=== PATIENT | female | born 1940 | race Caucasian/White ===

== ENCOUNTER 2017-05-27 11:38 | Inpatient (IN) | payer MEDICARE, OTHER ==
[~2017-05-27] VITALS: Ht 152.4 cm; Wt 64.0 kg
[~2017-05-27 11:38] MED LIST: BUSP10TA PO; DEPA250T2 PO; ESTR.625 PO; HYDR-3288 PO; LEVA500T PO; LEVO75TA3 PO; LORA0.5T PO; PRED10 PO; REME15TA PO; SENN8.6T8 PO; SERO300T PO; VITA100018 PO; WALKER WHEELS/F1 MIS; XARE10TA PO
[2017-05-27 11:41] VITALS: BP 143/66; PULSE 82; RESP 16; TEMP 98.2; O2SAT 99
[2017-05-27 12:48] LABS: AUTOMATED NEUTROPHIL # 4.6 TH/MM3 (1.8-7.7); BASOPHIL % 0.2 % (0.0-2.0); EOSINOPHIL % 0.2 % (0.0-4.0); HEMATOCRIT 36.7 % (35.0-46.0); HEMOGLOBIN 12.5 GM/DL (11.6-15.3); LYMPHOCYTE # 1.1 TH/MM3 (1.0-4.8); MEAN CELL VOLUME 98.4 FL (80.0-100.0); MEAN CORPUSCULAR HEMOGLOBIN 33.6 PG (27.0-34.0); MEAN CORPUSCULAR HGB CONC 34.2 % (32.0-36.0); MEAN PLATELET VOLUME 8.4 FL (7.0-11.0); MONO % 9.2 % (0.0-8.0); MONOCYTE # 0.6 TH/MM3 (0-0.9); NEUT % 73.4 % (16.0-70.0); PLATELET COUNT 181 TH/MM3 (150-450); RED BLOOD COUNT 3.73 MIL/MM3 (4.00-5.30); RED CELL DISTRIBUTION WIDTH 13.4 % (11.6-17.2); WHITE BLOOD COUNT 6.3 TH/MM3 (4.0-11.0)
--- NOTE | 2017-05-27 13:06 | PD ---
HPI Chief Complaint: Psychiatric Symptoms Time Seen by Provider: 12:43 Travel History International Travel<30 days: No Contact w/Intl Traveler<30days: No Traveled to known affect area: No History of Present Illness HPI The patient is a 76-year-old female who presents to the emergency department for psychiatric evaluation. The patient resides at an assisted living facility, has recently been noted to have increasing anxiety and manic behaviors. The patient does have a history of bipolar affective disorder for which she takes medications including Seroquel and Depakote. The patient denies any auditory or visual hallucinations. The patient denies alcohol use, illicit drug use, suicidal ideation, or homicidal ideation. She does complain of intermittent chest pain which she achieve units to her anxiety, recently had an EKG and an outpatient CT pulmonary angiogram performed. She denies any current complaints. PFSH Past Medical History Arthritis: Yes Anxiety: Yes Cancer: Yes (according to daughter 2xs last episode was 3 1/2 yrs ago lung cancer) Cardiovascular Problems: No (denied by patient's daughter) COPD: Yes Diabetes: No (denied by patient's daughter) Diminished Hearing: No Endocrine: No Gastrointestinal Disorders: Yes GERD: Yes Genitourinary: No Hypertension: Yes Immune Disorder: No Implanted Vascular Access Dvce: No Kidney Stones: No Musculoskeletal: Yes Neurologic: No Psychiatric: Yes Reproductive: No Respiratory: Yes Radiation Therapy: Yes (FINISHED IN FEBRUARY 2012) Renal Failure: No Menopausal: Yes : 3 Para: 3 Past Surgical History Abdominal Surgery: No Cardiac Surgery: No Ear Surgery: No Endocrine Surgery: No Eye Surgery: No Genitourinary Surgery: Yes (LITHOTRIPSY) Gynecologic Surgery: Yes (HYSTERECTOMY, ERECTOSEAL) Hysterectomy: Yes Thoracic Surgery: No Other Surgery: Yes (RIGHT LUNG BIOPSY/HEMORROIDECTOMY/R AXILLARY BENIGN MASS REMOVED) Social History Alcohol Use: No Tobacco Use: No (quit) Substance Use: No Allergies-Medications (Allergen,Severity, Reaction): Coded Allergies: atropine (Unverified Allergy, Severe, RASH, 05/27/17) doxycycline (Unverified Allergy, Severe, 05/27/17) hyoscyamine (Unverified Allergy, Severe, RASH, 05/27/17) penicillin G (Unverified Allergy, Severe, RASH, 05/27/17) phenobarbital (Unverified Allergy, Severe, RASH, 05/27/17) scopolamine (Unverified Allergy, Severe, RASH, 05/27/17) Reported Meds & Prescriptions Reported Meds & Active Scripts Active Lorazepam 0.5 Mg Tab 0.5 Mg PO DAILY PRN Vitamin D3 (Cholecalciferol) 1,000 Unit Tab 1,000 Units PO DAILY 30 Days Prednisone 10 Mg Tab 30 Mg PO DAILY 7 Days PREDNISONE 30 MG PO DAILY X 3, THEN DECRASE TO 20 MG PO DAILY X 3, THEN DECREASE 10 MG PO DAILY X 3 DAYS, THEN STOPPED Levaquin (Levofloxacin) 500 Mg Tab 500 Mg PO Q24H 5 Days Walker with Front Wheels (Device) 1 Mis Mis 1 Ea .ROUTE DIRECTED Xarelto (Rivaroxaban) 10 Mg Tab 10 Mg PO DAILY [place] (Hydrocodone-Acetaminophen) 7.5-325 mg Tab 1 Tab PO Q4H PRN Reported Seroquel (Quetiapine Fumarate) 300 Mg Tab 300 Mg PO HS Senna S (Sennosides-Docusate Sodium) 8.6-50 Mg Tab 1 Tab PO DIRECTED Remeron (Mirtazapine) 15 Mg Tab 7.5 Mg PO HS Premarin (Estrogens Conjugated) 0.625 Mg Tab 0.625 Mg PO DAILY Levothyroxine (Levothyroxine Sodium) 75 Mcg Tab 75 Mcg PO DAILY Depakote DR (Divalproex Sodium) 250 Mg Tabdr 250 Mg PO BID Buspirone (Buspirone HCl) 10 Mg Tab 10 Mg PO TID Review of Systems Except as stated in HPI: all other systems reviewed are Neg HENT: No: Lightheadedness Cardiovascular: Positive: Chest Pain or Discomfort (intermittent chest pain she attributes to her anxiety, no chest pain today) Respiratory: No: Shortness of Breath Gastrointestinal: No: Nausea, Vomiting, Abdominal Pain Genitourinary: No: Dysuria Neurologic: No: Change in Mentation Psychiatric: Positive: Anxiety, Mood Disorder, No: Suicidal Ideations, Substance Abuse, Homicidal Ideation Physical Exam Narrative GENERAL: Awake, alert, pleasant 76-year-old female who appears her stated age and is in no acute respiratory distress. SKIN: Focused skin assessment warm/dry. HEAD: Atraumatic. Normocephalic. EYES: Pupils equal and round. 3 mm bilateral and reactive. ENT: No nasal bleeding or discharge. Mucous membranes pink and moist. NECK: Trachea midline. No JVD. CARDIOVASCULAR: Regular rate and rhythm. No murmur appreciated. RESPIRATORY: No accessory muscle use. Clear to auscultation. Breath sounds equal bilaterally. GASTROINTESTINAL: Abdomen soft, non-tender, nondistended. No rebound tenderness. MUSCULOSKELETAL: No obvious deformities. No clubbing. No cyanosis. No edema. NEUROLOGICAL: Awake and alert. No obvious cranial nerve deficits. Motor grossly within normal limits. Normal speech. Oriented to date of , month, and holiday, but not the current year or cake wringer. PSYCHIATRIC: Appropriate mood and affect; insight and judgment normal. Data Data Last Documented VS Vital Signs Date Time Temp Pulse Resp B/P (MAP) Pulse Ox O2 Delivery O2 Flow Rate FiO2 05/27/17 11:41 98.2 82 16 143/66 (91) 99 Orders Orders Complete Blood Count With Diff (05/27/17 12:02) Comprehensive Metabolic Panel (05/27/17 12:02) Thyroid Stimulating Hormone (05/27/17 12:02) Urinalysis - C+S If Indicated (05/27/17 12:02) Valproic Acid (Depakene) (05/27/17 12:02) Psych Screen (05/27/17 12:02) Drug Screen, Random Urine (05/27/17 12:02) Alcohol (Ethanol) (05/27/17 12:02) Ammonia (05/27/17 14:05) Labs Laboratory Tests Test 05/27/17 12:30 05/27/17 13:20 05/27/17 14:15 White Blood Count 6.3 TH/MM3 Red Blood Count 3.73 MIL/MM3 Hemoglobin 12.5 GM/DL Hematocrit 36.7 % Mean Corpuscular Volume 98.4 FL Mean Corpuscular Hemoglobin 33.6 PG Mean Corpuscular Hemoglobin Concent 34.2 % Red Cell Distribution Width 13.4 % Platelet Count 181 TH/MM3 Mean Platelet Volume 8.4 FL Neutrophils (%) (Auto) 73.4 % Lymphocytes (%) (Auto) 17.0 % Monocytes (%) (Auto) 9.2 % Eosinophils (%) (Auto) 0.2 % Basophils (%) (Auto) 0.2 % Neutrophils # (Auto) 4.6 TH/MM3 Lymphocytes # (Auto) 1.1 TH/MM3 Monocytes # (Auto) 0.6 TH/MM3 Eosinophils # (Auto) 0.0 TH/MM3 Basophils # (Auto) 0.0 TH/MM3 CBC Comment DIFF FINAL Differential Comment Blood Urea Nitrogen 14 MG/DL Creatinine 0.87 MG/DL Random Glucose 116 MG/DL Total Protein 7.2 GM/DL Albumin 3.3 GM/DL Calcium Level 9.0 MG/DL Alkaline Phosphatase 94 U/L Aspartate Amino Transf (AST/SGOT) 17 U/L Alanine Aminotransferase (ALT/SGPT) 11 U/L Total Bilirubin 0.3 MG/DL Sodium Level 139 MEQ/L Potassium Level 4.2 MEQ/L Chloride Level 105 MEQ/L Carbon Dioxide Level 25.9 MEQ/L Anion Gap 8 MEQ/L Estimat Glomerular Filtration Rate 63 ML/MIN Thyroid Stimulating Hormone 3rd Gen 2.970 uIU/ML Valproic Acid (Depakene) Level 118 MCG/ML Ethyl Alcohol Level LESS THAN 3 MG/DL Urine Color LIGHT-YELLOW Urine Turbidity CLEAR Urine pH 7.0 Urine Specific [place] 1.006 Urine Protein NEG mg/dL Urine Glucose (UA) NEG mg/dL Urine Ketones NEG mg/dL Urine Occult Blood NEG Urine Nitrite NEG Urine Bilirubin NEG Urine Urobilinogen LESS THAN 2.0 MG/DL Urine Leukocyte Esterase NEG Urine RBC 1 /hpf Urine WBC LESS THAN 1 /hpf Urine Squamous Epithelial Cells <1 /hpf Microscopic Urinalysis Comment CULT NOT INDICATED Urine Opiates Screen NEG Urine Barbiturates Screen NEG Urine Amphetamines Screen NEG Urine Benzodiazepines Screen NEG Urine Cocaine Screen NEG Urine Cannabinoids Screen NEG Ammonia 24 MCMOL/L MDM Medical Decision Making Medical Screen Exam Complete: Yes Emergency Medical Condition: Yes Medical Record Reviewed: Yes Interpretation(s) Laboratory Tests Test 05/27/17 12:30 05/27/17 13:20 05/27/17 14:15 White Blood Count 6.3 TH/MM3 Red Blood Count 3.73 MIL/MM3 Hemoglobin 12.5 GM/DL Hematocrit 36.7 % Mean Corpuscular Volume 98.4 FL Mean Corpuscular Hemoglobin 33.6 PG Mean Corpuscular Hemoglobin Concent 34.2 % Red Cell Distribution Width 13.4 % Platelet Count 181 TH/MM3 Mean Platelet Volume 8.4 FL Neutrophils (%) (Auto) 73.4 % Lymphocytes (%) (Auto) 17.0 % Monocytes (%) (Auto) 9.2 % Eosinophils (%) (Auto) 0.2 % Basophils (%) (Auto) 0.2 % Neutrophils # (Auto) 4.6 TH/MM3 Lymphocytes # (Auto) 1.1 TH/MM3 Monocytes # (Auto) 0.6 TH/MM3 Eosinophils # (Auto) 0.0 TH/MM3 Basophils # (Auto) 0.0 TH/MM3 CBC Comment DIFF FINAL Differential Comment Blood Urea Nitrogen 14 MG/DL Creatinine 0.87 MG/DL Random Glucose 116 MG/DL Total Protein 7.2 GM/DL Albumin 3.3 GM/DL Calcium Level 9.0 MG/DL Alkaline Phosphatase 94 U/L Aspartate Amino Transf (AST/SGOT) 17 U/L Alanine Aminotransferase (ALT/SGPT) 11 U/L Total Bilirubin 0.3 MG/DL Sodium Level 139 MEQ/L Potassium Level 4.2 MEQ/L Chloride Level 105 MEQ/L Carbon Dioxide Level 25.9 MEQ/L Anion Gap 8 MEQ/L Estimat Glomerular Filtration Rate 63 ML/MIN Thyroid Stimulating Hormone 3rd Gen 2.970 uIU/ML Valproic Acid (Depakene) Level 118 MCG/ML Ethyl Alcohol Level LESS THAN 3 MG/DL Urine Color LIGHT-YELLOW Urine Turbidity CLEAR Urine pH 7.0 Urine Specific [place] 1.006 Urine Protein NEG mg/dL Urine Glucose (UA) NEG mg/dL Urine Ketones NEG mg/dL Urine Occult Blood NEG Urine Nitrite NEG Urine Bilirubin NEG Urine Urobilinogen LESS THAN 2.0 MG/DL Urine Leukocyte Esterase NEG Urine RBC 1 /hpf Urine WBC LESS THAN 1 /hpf Urine Squamous Epithelial Cells <1 /hpf Microscopic Urinalysis Comment CULT NOT INDICATED Urine Opiates Screen NEG Urine Barbiturates Screen NEG Urine Amphetamines Screen NEG Urine Benzodiazepines Screen NEG Urine Cocaine Screen NEG Urine Cannabinoids Screen NEG Ammonia 24 MCMOL/L Differential Diagnosis Differential diagnosis includes bipolar affective disorder, mood disorder, subtherapeutic Depakote level, supratherapeutic Depakote level, UTI, delirium. Narrative Course Labs are drawn and sent. Depakote level and TSH were sent to lab. Psychiatric evaluation was ordered. Depakote level is supratherapeutic at 118, they will need to hold the Depakote level. Therefore, ammonia level was sent to lab. Ammonia level was unremarkable. Patient is medically clear to be evaluated by psychiatry, I recommended they hold the Depakote level Diagnosis Primary Impression: Bipolar disorder, mixed Additional Impression: Valproic acid toxicity Qualified Codes: T42.6X1A - Poisoning by other antiepileptic and sedative- hypnotic drugs, accidental (unintentional), initial encounter Condition: Stable Aaron Singh MD May 27, 2017 13:06
[2017-05-27 13:18] LABS: ALBUMIN 3.3 GM/DL (3.4-5.0); AST (GOT) 17 U/L (15-37); BICARBONATE 25.9 MEQ/L (21.0-32.0); BLOOD UREA NITROGEN 14 MG/DL (7-18); CHLORIDE 105 MEQ/L (98-107); CREATININE 0.87 MG/DL (0.50-1.00); GLOMERULAR FILTRATION RATE 63 ML/MIN (>89); GLUCOSE,RANDOM 116 MG/DL (74-106); SODIUM (NA) 139 MEQ/L (136-145)
[2017-05-27 13:28] LABS: ALKALINE PHOSPHATASE 94 U/L (45-117); ALT (GPT) 11 U/L (10-53); TOTAL BILIRUBIN ADULT 0.3 MG/DL (0.2-1.0); TOTAL PROTEIN 7.2 GM/DL (6.4-8.2)
[2017-05-27 16:30] LABS: BILIRUBIN, URINE NEG (NEG); BLOOD, URINE NEG (NEG); GLUCOSE,URINE NEG (NEG); KETONE, URINE NEG (NEG); NITRITE,URINE NEG (NEG); SQUAMOUS EPITHELIAL CELL URINE <1 /hpf (0-5); URINE COLOR LIGHT-YELLOW (YELLW/STRAW); URINE LEUKOCYTE ESTERASE NEG (NEG)
[2017-05-27] MEDS ORDERED: LEVO50TA4 PO (18:14)
[2017-05-27] MEDS ORDERED: QUET1TAB9 PO (18:14)
[2017-05-27] MEDS ORDERED: LISI-519 PO (18:14)
[2017-05-27] MEDS ORDERED: BUSP15TA PO (18:14)
[2017-05-27] MEDS ORDERED: LORA0.5T PO (18:14)
[2017-05-27] MEDS ORDERED: QUET5TAB PO (18:14)
[2017-05-27] MEDS ORDERED: LORazepam 1 MG TAB PO ONE (18:15)
[2017-05-27 19:55] VITALS: BP 145/82; PULSE 78; RESP 20; O2SAT 97
[2017-05-27] MEDS ORDERED: diphenhydrAMINE HCL 50 MG CAP PO PRN (22:45)
[2017-05-27] MEDS ORDERED: diphenhydrAMINE HCL 50 MG/ML VIAL IM PRN (23:00)
[2017-05-27] MEDS ORDERED: hydrOXYzine HCL 50 MG TAB PO PRN (23:00)
[2017-05-27] MEDS ORDERED: ALUMINUM/MAGNESIUM/SIMETH 30 ML CUP PO PRN (23:00)
[2017-05-27] MEDS ORDERED: diphenhydrAMINE HCL 50 MG/ML VIAL - HS PRN IM (23:00)
[2017-05-27] MEDS ORDERED: LORazepam 2 MG/ML VIAL - age > 65 yrs IM PRN (23:00)
[2017-05-27] MEDS ORDERED: ACETAMINOPHEN 325 MG TAB PO PRN (23:00)
[2017-05-27] MEDS ORDERED: LORazepam 0.5 MG TAB age > 65 yrs PO PRN (23:00)
[2017-05-27] MEDS ORDERED: traZODone HCL 50 MG TAB PO PRN (23:00)
[2017-05-27 23:30] VITALS: BP 164/89; PULSE 96; RESP 17; TEMP 98; O2SAT 98
[2017-05-28] MEDS: diphenhydrAMINE HCL 50 MG CAP - HS PRN PO
[2017-05-28] MEDS: LEVOTHYROXINE SODIUM 50 MCG TAB PO SCH (05:37)
[2017-05-28 05:41] VITALS: BP 148/80; PULSE 73; RESP 18; TEMP 97.3; O2SAT 94
[2017-05-28] MEDS: LISINOPRIL 5 MG TAB PO SCH (08:57)
[2017-05-28] MEDS ORDERED: NICOTINE 21 MG/24 HR PATCH T-DERMAL SCH (09:00)
--- NOTE | 2017-05-28 12:53 | HHI.HP ---
Provisional Diagnosis Admission Date May 27, 2017 at 22:09 [place] I. Bipolar disorder mixed F 31.60 Certification of Person's Competence To Provide Express and Informed Consent I have personally examined Eliane Frost , a person being served at [facility] on, May 28, 2017 12:37. Express and informed consent means consent voluntarily given in writing, by a competent person, after sufficient explanation and disclosure of the subject matter involved to enable the person to make a knowing and willful decision without any element of force, fraud, deceit, duress, or other form of constraint or coercion. This person is 18 years of age or older, is not now known to be incompetent to consent to treatment with a guardian advocate, and does not have a health care surrogate or proxy currently making medical treatment decisions. I have found this person to be one of the following: [xxxx] Competent to provide express and informed consent, as defined above, for voluntary admission to this facility and is competent to provide express and informed consent for treatment. He/she has the consistent capacity to make well reasoned, willful, and knowing decisions concerning his or her medical or mental health treatment. The person fully and consistently understands the purpose of the admission for examination/placement and is fully capable of personally exercising all rights [place] Incompetent to provide express and informed consent to voluntary admission, and this is incompetent to provide express and informed consent to treatment. The person must be transferred to involuntary status and a petition for a guardian advocate filed with the Circuit Court. [] Refusing to provide express and informed consent to voluntary admission but is competent to provide express and informed consent for treatment. The person must be discharged or transferred to involuntary status. Form shall be completed within 24 hours of a person's arrival at the receiving facility and filed in the clinical record of each person: 1. Admitted on a voluntary basis 2. Permitted to provide express and informed consent to his/her own treatment 3. Allowed to transfer from involuntary to voluntary status 4. Prior to permitting a person to consent to his or her own treatment after having been previously found incompetent to consent to treatment. History of Present Illness Capacity: Has Capacity HPI Patient is a 76-year-old white female comes here voluntarily from her small long term, [place] home, patient exhibited some out of control irritable manic labile behaviors. Making vague suicidal statements. Patient is a long history of bipolar disorder. Effect upon review of the EMR patient is hospitalized briefly under my service in 2013 for similar episode. Patient seen screened in our ED Depakote blood level returned as 118. In toxicology negative alcohol level negative. At the present time patient sitting quietly in her room medical student Jose present throughout session. Patient is alert oriented white female who appears stated age she is calm and cooperative with us. She states she is lived in her long term for number of years is actually happy with her. She states she tries to be compliant with medication. She does complain primarily of dry mouth it appears this occurs throughout the day but it is more significant towards late evening and into the morning hours. Depression is seeing her dentist no help. She has tried frequent use of about beverages. She has tried hard candy. All with no significant side effects. Patient does denies suicidality homicidality voices or visions. It appears she is getting his psychotropic medications for her family practice doctor. She does denies suicidality homicidality voices or visions. Patient lives in the long term but has close relationship with her daughter who lives locally. At this time patient meets criteria for further assessment voluntarily an inpatient psychiatric hospitalization. Will recheck Depakote blood level in a.m. we will increase her scheduled Seroquel to 50 mg a.m. 50 mg at bedtime. We 'll continue the Remeron at 7.5 mg daily we will discontinue the trazodone. will have hospitalist consult hopefully this will be a short stay with us, returning to her long term with follow-up through that facility patient also states that she has had 4 children 3 or 4 in the living daughter who is local, that she is also buried 3 husbands Review of Systems Constitutional: DENIES: Diaphoretic episodes, Fatigue, Fever, Weight gain, Weight loss, Chills, Dizziness, Change in appetite, Night Sweats Endocrine: DENIES: Abnorml menstrual pattern, Heat/cold intolerance, Polydipsia , Polyuria, Polyphagia Eyes: DENIES: Blurred vision, Diplopia, Eye inflammation, Eye pain, Vision loss , Photosensitivity, Double Vision Respiratory: DENIES: Apneas, Cough, Snoring, Wheezing, Hemoptysis, Sputum production, Shortness of breath Cardiovascular: DENIES: Chest pain, Palpitations, Syncope, Dyspnea on Exertion , PND, Lower Extremity Edema, Orthopnea, Claudication Gastrointestinal: DENIES: Abdominal pain, Black stools, Bloody stools, Constipation, Diarrhea, Nausea, Vomiting, Difficulty Swallowing, Anorexia Genitourinary: DENIES: Abnormal vaginal bleeding, Dysmenorrhea, Dyspareunia, Sexual dysfunction, Urinary frequency, Urinary incontinence, Urgency, Hematuria , Dysuria, Nocturia, Vaginal discharge Musculoskeletal: DENIES: Joint pain, Muscle aches, Stiffness, Joint Swelling, Back pain, Neck pain Hematologic/lymphatic: DENIES: Bruising, Lymphadenopathy Immunologic/allergic: DENIES: Eczema, Urticaria Neurologic: DENIES: Abnormal gait, Headache, Localized weakness, Paresthesias, Seizures, Speech Problems, Tremor, Poor Balance Psychiatric: COMPLAINS OF: Depression, Agitation (mild) Past Psych History Psychological trauma history Denies Violence risk - others (6 mos) Low Violence risk - self (6 mos) Low patient does denies suicidality homicidality voices or visions Substance Abuse History Drugs/Alcohol past 12 months Denies Past Family Social History Coded Allergies: atropine (Unverified Allergy, Severe, RASH, 05/27/17) doxycycline (Unverified Allergy, Severe, 05/27/17) hyoscyamine (Unverified Allergy, Severe, RASH, 05/27/17) penicillin G (Unverified Allergy, Severe, RASH, 05/27/17) phenobarbital (Unverified Allergy, Severe, RASH, 05/27/17) scopolamine (Unverified Allergy, Severe, RASH, 05/27/17) Reported Medications Quetiapine (Quetiapine) 50 Mg Tab, 50 MG PO HS, #30 TAB 0 Refills 05/27/17 Lisinopril (Lisinopril) 5 Mg Tab, 5 MG PO DAILY for Blood Pressure Management, # 30 TAB 0 Refills 05/27/17 Quetiapine (Quetiapine) 200 Mg Tab, 200 MG PO DAILY, #30 TAB 0 Refills 05/27/17 Levothyroxine (Levothyroxine) 50 Mcg Tab, 50 MCG PO DAILY for Thyroid, #30 TAB 0 Refills 05/27/17 Sennosides-Docusate Sodium (Senna S) 8.6-50 Mg Tab, 1 TAB PO DIRECTED 02/12/16 Mirtazapine (Remeron) 15 Mg Tab, 7.5 MG PO HS for Depression Control, #15 TAB 0 Refills 02/12/[address] (Depakote DR) 250 Mg Tabdr, 500 MG PO BID for Control Seizures, # 60 TAB 0 Refills 02/12/16 Discontinued Reported Medications Lorazepam (Lorazepam) 0.5 Mg Tab, 0.5 MG PO BID, TAB 0 Refills 05/27/17 Buspirone (Buspirone) 15 Mg Tab, 15 MG PO TID for Anxiety, TAB 0 Refills 05/27/17 Quetiapine (Seroquel) 300 Mg Tab, 300 MG PO HS, #30 TAB 0 Refills 02/12/16 Estrogens, Conjugated (Premarin) 0.625 Mg Tab, 0.625 MG PO DAILY for Estrogen Supplements, #30 TAB 0 Refills 02/12/16 Levothyroxine (Levothyroxine) 75 Mcg Tab, 75 MCG PO DAILY for Thyroid, #30 TAB 0 Refills 02/12/16 Buspirone (Buspirone) 10 Mg Tab, 10 MG PO TID for Anxiety, TAB 0 Refills 02/12/16 Discontinued Scripts Lorazepam (Lorazepam) 0.5 Mg Tab, 0.5 MG PO DAILY Y for ANXIETY, #10 TAB 0 Refills Prov:Contreras Castañeda MD 02/19/16 Cholecalciferol (Vitamin D3) 1,000 Unit Tab, 1000 UNITS PO DAILY for ELECTROLYTE IMBALANCE for 30 Days, TAB 0 Refills Prov:Bree Schafer 02/19/16 Prednisone (Prednisone) 10 Mg Tab, 30 MG PO DAILY for Broncospasm for 7 Days, TAB 0 Refills PREDNISONE 30 MG PO DAILY X 3, THEN DECRASE TO 20 MG PO DAILY X 3, THEN DECREASE 10 MG PO DAILY X 3 DAYS, THEN STOPPED Prov:Bree Schafer 02/19/16 Levofloxacin (Levaquin) 500 Mg Tab, 500 MG PO Q24H for Infection for 5 Days, TAB 0 Refills Prov:Bree Schafer 02/19/16 Walker with Front Wheels (Walker with Front Wheels) 1 Mis Mis, 1 EA .ROUTE DIRECTED, #1 EA 0 Refills Prov:LUANN MEJIA PA-C 02/13/16 Rivaroxaban (Xarelto) 10 Mg Tab, 10 MG PO DAILY for Blood Clot Prevention, #14 TAB 0 Refills Prov:LUANN MEJIA PA-C 02/13/16 Hydrocodone-Acetaminophen ([place]) 7.5-325 mg Tab, 1 TAB PO Q4H Y for PAIN, #60 TAB 0 Refills Prov:LUANN MEJIA PA-C 02/13/16 Current Medications Medications (Trade) Dose Ordered Sig/Tammy Route Start Time Stop Time Status Last Admin (Atarax) 50 mg Q6H PRN PO 05/27/17 23:00 (Benadryl) 50 mg HS PRN PO 05/27/17 23:00 05/28/17 00:00 (Desyrel) 50 mg HS PRN PO 05/27/17 23:00 (Tylenol) 650 mg Q4H PRN PO 05/27/17 23:00 (Milk Of Magnesia Liq) 30 ml DAILY PRN PO 05/27/17 23:00 (Mag-Al Plus Susp Liq) 30 ml Q6H PRN PO 05/27/17 23:00 (Synthroid) 50 mcg DAILY@0600 PO 05/28/17 06:00 05/28/17 05:37 (Prinivil) 5 mg DAILY PO 05/28/17 09:00 05/28/17 08:57 (SEROquel) 50 mg HS PO 05/28/17 21:00 (Flu (Quadrivalent) Vaccine Inj) 0.5 ml ONCE ONCE IM 05/29/17 10:00 05/29/17 10:01 Family Psych History Patient denies Social History Patient living in a long term has one surviving daughter who is local and supportive Patient's Strengths (min. 2) Patient verbal cooperative able axis health care Physical Exam Patient medically cleared ED at the present time patient sitting quietly on her bedside she is in no acute distress, she is in no respiratory distress, no complaints of abdominal pain. Patient moving all 4 extremities with a somewhat of a shuffle. She does use a walker. Vital Signs Vital Signs Date Time Temp Pulse Resp B/P (MAP) Pulse Ox O2 Delivery O2 Flow Rate FiO2 05/28/17 05:41 97.3 73 18 148/80 (102) 94 Lab Results Test 05/27/17 13:20 2/14/18 14:15 Urine Color LIGHT-YELLOW Urine Turbidity CLEAR Urine pH 7.0 Urine Specific [place] 1.006 Urine Protein NEG mg/dL Urine Glucose (UA) NEG mg/dL Urine Ketones NEG mg/dL Urine Occult Blood NEG Urine Nitrite NEG Urine Bilirubin NEG Urine Urobilinogen LESS THAN 2.0 MG/DL Urine Leukocyte Esterase NEG Urine RBC 1 /hpf Urine WBC LESS THAN 1 /hpf Urine Squamous Epithelial Cells <1 /hpf Microscopic Urinalysis Comment CULT NOT INDICATED Urine Opiates Screen NEG Urine Barbiturates Screen NEG Urine Amphetamines Screen NEG Urine Benzodiazepines Screen NEG Urine Cocaine Screen NEG Urine Cannabinoids Screen NEG Ammonia 24 MCMOL/L Mental Status Examination Appearance: Appropriate Consciousness: Alert Orientation: x4 Motor Activity: Other (patient uses walker will get PT consult) Speech: Unremarkable Language: Adequate Fund of Knowledge: Adequate Attention and Concentration: Adequate Memory: Unremarkable Mood: Sad (mildly dysphoric) Affect: Other (slight decreased range and intensity) Thought Process & Associations: Intact Thought Content: Appropriate Hallucination Type: None Delusion Type: None Suicidal Ideation: No (denies) Suicidal Plan: No (denies) Suicidal Intention: No (denies) Homicidal Ideation: No Homicidal Plan: No Homicidal Intention: No Insight: Fair Judgment: Adequate Assessment & Plan Problem List: (1) Bipolar disorder, mixed ICD Codes: F31.60 - Bipolar disorder, current episode mixed, unspecified Status: Acute Assessment & Plan Estimated LOS: 7 days patient remains somewhat mixed manic, though I do not see signs of psychosis at this time. We do need to monitor and adjust patient's Depakote level and dosage Discharge Planning Probable return to long term Request HC Surrog/Guard Advoc?: Akhil Daniel MD May 28, 2017 12:53
[2017-05-28] MEDS ORDERED: PILL SPLITTER OTHER PRN (13:00)
[2017-05-28 14:59] LABS: BICARBONATE 28.8 MEQ/L (21.0-32.0); BLOOD UREA NITROGEN 23 MG/DL (7-18); CHLORIDE 103 MEQ/L (98-107); CHOLESTEROL 195 MG/DL (120-200); CHOLESTEROL/ HDL RATIO 2.12 RATIO; CREATININE 1.28 MG/DL (0.50-1.00); GLOMERULAR FILTRATION RATE 41 ML/MIN (>89); GLUCOSE,RANDOM 92 MG/DL (74-106); HDL CHOLESTEROL 91.6 MG/DL (40.0-60.0); LDL CHOLESTEROL 90 MG/DL (0-99); SODIUM (NA) 139 MEQ/L (136-145); TRIGLYCERIDES 68 MG/DL (42-150)
[2017-05-28] MEDS ORDERED: cloNIDine HCL 0.1 MG TAB PO STA (15:47)
--- NOTE | 2017-05-28 16:36 | PD.CONS ---
[facility] Consult Requested By Psychiatry team, Dr. Sethi Reason for Consult Assist with medical management Primary Care Physician Aaron Keen MD Diagnoses: History of Present Illness Patient is a 76-year-old female with primary medical history of arthritis, anxiety, COPD, GERD who came into the hospital from assisted living facility for psychiatric evaluation. Review of records, patient was noted to have increasing anxiety and manic behaviors. She is now admitted to inpatient psychiatry unit for further evaluation. Consulted for medical management. Patient seen and examined today. States she is doing well. Patient unable to verify her own medical history. Patient does not remember any of the events that had happened brought her to the hospital. She denies that she has high blood pressure or COPD, states she has lung cancer where and she had lung biopsy. States she gets short of breath with ambulation because of too much effort especially with her right hip that she had surgery on in the past. Denies pain and discomfort. Denies chest pain, palpitations, headaches, dizziness. Denies fevers, chills, n/v/d. Denies dysuria. Review of Systems ROS Limitations: Poor Historian Past Family Social History Allergies: Coded Allergies: atropine (Unverified Allergy, Severe, RASH, 05/27/17) doxycycline (Unverified Allergy, Severe, 05/27/17) hyoscyamine (Unverified Allergy, Severe, RASH, 05/27/17) penicillin G (Unverified Allergy, Severe, RASH, 05/27/17) phenobarbital (Unverified Allergy, Severe, RASH, 05/27/17) scopolamine (Unverified Allergy, Severe, RASH, 05/27/17) Past Medical History Review of records Bipolar disorder Arthritis HTN COPD Lung cancer Gastritis Osteoporosis Past Surgical History Patient states Hysterectomy Lung biopsy Right hip surgery, IM nailing Reported Medications Reported Meds & Active Scripts Active Reported Quetiapine (Quetiapine Fumarate) 50 Mg Tab 50 Mg PO HS Lisinopril 5 Mg Tab 5 Mg PO DAILY Quetiapine (Quetiapine Fumarate) 200 Mg Tab 200 Mg PO DAILY Levothyroxine (Levothyroxine Sodium) 50 Mcg Tab 50 Mcg PO DAILY Senna S (Sennosides-Docusate Sodium) 8.6-50 Mg Tab 1 Tab PO DIRECTED Remeron (Mirtazapine) 15 Mg Tab 7.5 Mg PO HS Depakote DR (Divalproex Sodium) 250 Mg Tabdr 500 Mg PO BID Active Ordered Medications Current Medications Medications (Trade) Dose Ordered Sig/Tammy Route Start Time Stop Time Status Last Admin (Atarax) 50 mg Q6H PRN PO 05/27/17 23:00 (Benadryl) 50 mg HS PRN PO 05/27/17 23:00 05/28/17 00:00 (Tylenol) 650 mg Q4H PRN PO 05/27/17 23:00 (Milk Of Magnesia Liq) 30 ml DAILY PRN PO 05/27/17 23:00 (Mag-Al Plus Susp Liq) 30 ml Q6H PRN PO 05/27/17 23:00 (Synthroid) 50 mcg DAILY@0600 PO 05/28/17 06:00 05/28/17 05:37 (Prinivil) 5 mg DAILY PO 05/28/17 09:00 05/28/17 08:57 (Flu (Quadrivalent) Vaccine Inj) 0.5 ml ONCE ONCE IM 05/29/17 10:00 05/29/17 10:01 (SEROquel) 50 mg BID PO 05/28/17 21:00 (Remeron) 7.5 mg HS PO 05/28/17 21:00 (Pill Splitter) 1 ea UNSCH PRN OTHER 05/28/17 13:00 (Catapres) 0.1 mg Q6H PRN PO 05/28/17 16:45 Family History States mother when she was 14 years old Father of cancer Social History Lives in assisted living facility Denies alcohol use Former smoker, 45 years of smoking 1 pack per day but has quit 6 years ago Denies illicit drug use Physical Exam Vital Signs Vital Signs Date Time Temp Pulse Resp B/P (MAP) Pulse Ox O2 Delivery O2 Flow Rate FiO2 05/28/17 05:41 97.3 73 18 148/80 (102) 94 05/27/17 23:30 98.0 96 17 164/89 (114) 98 05/27/17 19:55 78 20 145/82 (103) 97 Physical Exam GENERAL: This is a well-nourished, petite, in no apparent distress. SKIN: Cool and dry. HEAD: Normocephalic. EYES: Pupils equal round and reactive. Extraocular motions intact. No scleral icterus. No injection or drainage. ENT: Nose without bleeding. Throat without erythema. Uvula midline. Airway patent. NECK: Trachea midline. CARDIOVASCULAR: Regular rate and rhythm without murmurs, gallops, or rubs. RESPIRATORY: Clear to auscultation. Breath sounds equal bilaterally. No wheezes , rales, or rhonchi. GASTROINTESTINAL: Abdomen soft, non-tender, nondistended. Bowel sounds active 4. MUSCULOSKELETAL: Extremities without clubbing, cyanosis, or edema. NEUROLOGICAL: Awake and alert. Oriented to place, person. Motor and sensory grossly within normal limits. Normal speech. Laboratory Laboratory Tests Test 05/28/17 14:19 Blood Urea Nitrogen 23 Creatinine 1.28 Random Glucose 92 Calcium Level 9.0 Sodium Level 139 Potassium Level 5.1 Chloride Level 103 Carbon Dioxide Level 28.8 Anion Gap 7 Estimat Glomerular Filtration Rate 41 Triglycerides Level 68 Cholesterol Level 195 LDL Cholesterol 90 HDL Cholesterol 91.6 Cholesterol/HDL Ratio 2.12 Result Diagram: 05/27/17 1230 05/28/17 1419 Assessment and Plan Problem List: (1) MIGUEL (generalized anxiety disorder) ICD Code: F41.1 - MIGUEL (generalized anxiety disorder) Status: Acute (2) Mood disorder ICD Code: F39 - Mood disorder Status: Acute (3) Valproic acid toxicity ICD Code: T42.6X1A - Poisoning by other antiepileptic and sedative-hypnotic drugs, accidental (unintentional), initial encounter Status: Acute (4) Bipolar disorder, mixed ICD Code: F31.60 - Bipolar disorder, current episode mixed, unspecified Status: Acute Assessment and Plan Patient is a 76-year-old female with primary medical history of arthritis, anxiety, COPD, GERD who came into the hospital from assisted living facility for psychiatric evaluation. Review of records, patient was noted to have increasing anxiety and manic behaviors. She is now admitted to inpatient psychiatry unit for further evaluation. Consulted for medical management. Bipolar disorder, anxiety - Managed by psychiatry team HTN, uncontrolled - Continue low-dose lisinopril 5 mg daily, will add amlodipine 5 mg - Patient denies having any hypertension but she is on BP medications. - Monitor BP trend COPD, not in exacerbation - Continue to monitor respiratory status. DuoNeb's when necessary Acute kidney injury - Avoid nephrotoxins - Encourage by mouth fluid intake - Recheck BMP. Monitor renal indices. History of right hip surgery - Monitor for risk for falls. PT eval and treat if necessary DVT prop ambulatory Code Status Full code Discussed Condition With Patient, nursing Problem Qualifiers (1) Valproic acid toxicity: Qualified Codes: T42.6X1A - Poisoning by other antiepileptic and sedative- hypnotic drugs, accidental (unintentional), initial encounter Dorian Staton May 28, 2017 16:36
[2017-05-28 16:38] LABS: HEMOGLOBIN A1C 4.9 % (4.3-6.0)
[2017-05-28] MEDS ORDERED: cloNIDine HCL 0.1 MG TAB PO PRN (16:45)
[2017-05-28 17:12] VITALS: RESP 16; TEMP 97.3; O2SAT 98
[2017-05-28] MEDS ORDERED: QUEtiapine FUMARATE 25 MG TAB PO SCH (21:00)
[2017-05-28] MEDS: QUEtiapine FUMARATE 25 MG TAB PO SCH (21:00)
[2017-05-28] MEDS ORDERED: REMOVE OLD NICOTINE PATCH T-DERMAL SCH (21:00)
[2017-05-28] MEDS: MIRTAZAPINE 15 MG TAB PO SCH (21:00)
[2017-05-29 05:58] VITALS: BP 124/82; PULSE 76; RESP 18; TEMP 98.4; O2SAT 98
[2017-05-29] MEDS: LEVOTHYROXINE SODIUM 50 MCG TAB PO SCH (06:00)
[2017-05-29] MEDS ORDERED: LEVOTHYROXINE SODIUM 50 MCG TAB PO SCH (09:00)
[2017-05-29] MEDS: QUEtiapine FUMARATE 25 MG TAB PO SCH ×2 (09:26→22:11)
[2017-05-29] MEDS: amLODIPine BESYLATE 5 MG TAB PO SCH (09:26)
[2017-05-29] MEDS: LISINOPRIL 5 MG TAB PO SCH (09:26)
[2017-05-29] MEDS ORDERED: INFLUENZA VIRUS VACCINE (QUADRIVALENT) 0.5 ML SYR IM ONE (10:00)
--- NOTE | 2017-05-29 11:55 | HHI.PYPN ---
Subjective Remarks Patient seen in her room with nurse Allen, chart reviewed, discussed with nurse. Patient complains of severe dry mouth. To extent where she panics becomes anxious at night with the dysphasia secondary to the dry mouth. Otherwise patient denies suicidality homicidality voices or visions. She is compliant with medications. For now continue treatment. Will attempt offer oral care with Biotene Review of Systems Except as stated in HPI: all other systems reviewed are Neg Mental Status Examination Appearance: Appropriate Consciousness: Alert Orientation: x4 Motor Activity: Other (patient uses walker will get PT consult) Speech: Unremarkable Language: Adequate Fund of Knowledge: Adequate Attention and Concentration: Adequate Memory: Unremarkable Mood: Sad (mildly dysphoric) Affect: Other (slight decreased range and intensity) Thought Process & Associations: Intact Thought Content: Appropriate Hallucination Type: None Delusion Type: None Suicidal Ideation: No (denies) Suicidal Plan: No (denies) Suicidal Intention: No (denies) Homicidal Ideation: No Homicidal Plan: No Homicidal Intention: No Insight: Fair Judgment: Adequate Results Labs Test 05/28/17 14:19 Blood Urea Nitrogen 23 MG/DL Creatinine 1.28 MG/DL Random Glucose 92 MG/DL Calcium Level 9.0 MG/DL Sodium Level 139 MEQ/L Potassium Level 5.1 MEQ/L Chloride Level 103 MEQ/L Carbon Dioxide Level 28.8 MEQ/L Anion Gap 7 MEQ/L Estimat Glomerular Filtration Rate 41 ML/MIN Hemoglobin A1c 4.9 % Triglycerides Level 68 MG/DL Cholesterol Level 195 MG/DL LDL Cholesterol 90 MG/DL HDL Cholesterol 91.6 MG/DL Cholesterol/HDL Ratio 2.12 RATIO Vitals/IOs Vital Signs Date Time Temp Pulse Resp B/P (MAP) Pulse Ox O2 Delivery O2 Flow Rate FiO2 05/29/17 05:58 98.4 76 18 124/82 (96) 98 Intake and Output 05/29/17 05/29/17 05/30/17 08:00 16:00 00:00 Intake Total 240 ml Balance 240 ml Assessment & Plan Problem List: (1) Bipolar disorder, mixed ICD Codes: F31.60 - Bipolar disorder, current episode mixed, unspecified Status: Acute Assessment & Plan Estimated LOS: days patient continues somewhat anxious nervous. Though denying suicidality homicidality. So focus of her anxiety and panic on her dry mouth with perceived dysphagia and difficulty breathing issues Justification for Cont. Inpt. At this time patient would decompensated placed in a lower level of care Discharge Planning Possible return to home situation Request HC Surrog/Guard Advoc?: No Akhil Fields MD May 29, 2017 11:55
[2017-05-29 18:00] VITALS: BP 177/79; PULSE 90; RESP 16; TEMP 98.2; O2SAT 96
[2017-05-29] MEDS: MIRTAZAPINE 15 MG TAB PO SCH (22:10)
[2017-05-30] MEDS: LEVOTHYROXINE SODIUM 50 MCG TAB PO SCH (05:42)
[2017-05-30 06:22] VITALS: BP 142/94; PULSE 83; RESP 18; TEMP 97.6; O2SAT 98
[2017-05-30] MEDS: amLODIPine BESYLATE 5 MG TAB PO SCH (10:36)
[2017-05-30] MEDS: LISINOPRIL 5 MG TAB PO SCH (10:36)
[2017-05-30] MEDS: QUEtiapine FUMARATE 25 MG TAB PO SCH ×2 (10:36→21:00)
--- NOTE | 2017-05-30 13:39 | HHI.PR ---
Subjective Remarks Follow-up on patient with COPD, hypertension, MAHSA. Patient seen and examined. Patient denies any complaints except for dry mouth. She denies any postural dizziness upon sitting or standing. She denies any chest pain or shortness of breath. Denies any nausea, vomiting or abdominal pain. Denies any swelling in her legs or feet. She denies any dysuria, urgency or frequent urination. Denies any diarrhea or constipation. Objective Vitals Vital Signs Date Time Temp Pulse Resp B/P (MAP) Pulse Ox O2 Delivery O2 Flow Rate FiO2 05/30/17 06:22 97.6 83 18 142/94 (110) 98 05/29/17 18:00 98.2 90 16 177/79 (111) 96 I/O 05/29/17 05/29/17 05/29/17 05/30/17 05/30/17 05/30/17 06:59 14:59 22:59 06:59 14:59 22:59 Intake Total 480 ml Balance 480 ml Intake Oral 480 ml Result Diagram: 05/27/17 1230 05/28/17 1419 Objective Remarks GENERAL: This is a well-nourished, well-developed elderly petite female, in no apparent distress. Awake and alert. Witnessed ambulating in the unit. SKIN: Cool and dry. HEAD: Normocephalic. Atraumatic. EYES: Extraocular motions intact. No scleral icterus. No injection or drainage. ENT: Nose without bleeding or drainage. Airway patent. MMM. NECK: Trachea midline. CARDIOVASCULAR: Regular rate and rhythm without murmurs, gallops, or rubs. RESPIRATORY: Clear to auscultation. Breath sounds equal bilaterally. No wheezes , rales, or rhonchi. GASTROINTESTINAL: Abdomen soft, non-tender, nondistended. Bowel sounds active 4. MUSCULOSKELETAL: Extremities without clubbing, cyanosis, or edema. NEUROLOGICAL: Awake and alert. Able to move all extremities spontaneously. Motor and sensory grossly within normal limits. Normal speech. Medications and IVs Current Medications Medications (Trade) Dose Ordered Sig/Tammy Route Start Time Stop Time Status Last Admin (Atarax) 50 mg Q6H PRN PO 05/27/17 23:00 (Benadryl) 50 mg HS PRN PO 05/27/17 23:00 05/28/17 00:00 (Tylenol) 650 mg Q4H PRN PO 05/27/17 23:00 (Milk Of Magnesia Liq) 30 ml DAILY PRN PO 05/27/17 23:00 (Mag-Al Plus Susp Liq) 30 ml Q6H PRN PO 05/27/17 23:00 (Synthroid) 50 mcg DAILY@0600 PO 05/28/17 06:00 05/30/17 05:42 (Prinivil) 5 mg DAILY PO 05/28/17 09:00 05/30/17 10:36 (SEROquel) 50 mg BID PO 05/28/17 21:00 05/30/17 10:36 (Remeron) 7.5 mg HS PO 05/28/17 21:00 05/29/17 22:10 (Pill Splitter) 1 ea UNSCH PRN OTHER 05/28/17 13:00 (Catapres) 0.1 mg Q6H PRN PO 05/28/17 16:45 (Norvasc) 5 mg DAILY PO 05/29/17 09:00 05/30/17 10:36 A/P Problem List: (1) MIGUEL (generalized anxiety disorder) ICD Code: F41.1 - MIGUEL (generalized anxiety disorder) Status: Acute (2) Mood disorder ICD Code: F39 - Mood disorder Status: Acute (3) Valproic acid toxicity ICD Code: T42.6X1A - Poisoning by other antiepileptic and sedative-hypnotic drugs, accidental (unintentional), initial encounter Status: Acute (4) Bipolar disorder, mixed ICD Code: F31.60 - Bipolar disorder, current episode mixed, unspecified Status: Acute Assessment and Plan Patient is a 76-year-old female with primary medical history of arthritis, anxiety, COPD, GERD who came into the hospital from assisted living facility for psychiatric evaluation. Review of records, patient was noted to have increasing anxiety and manic behaviors. She is now admitted to inpatient psychiatry unit for further evaluation. Consulted for medical management. Bipolar disorder, anxiety - Managed by psychiatry team HTN - Better controlled - Continue low-dose lisinopril 5 mg daily and amlodipine 5 mg daily - Patient denies having any hypertension but she is on BP medications. - Monitor BP trend COPD, not in exacerbation - Continue to monitor respiratory status. DuoNeb's when necessary Acute kidney injury - Avoid nephrotoxins - Encourage by mouth fluid intake - Repeat BMP from this am not done. BMP ordered for tomorrow am. History of right hip surgery - Monitor for risk for falls. PT eval and treat if necessary DVT prop - patient is ambulatory Problem Qualifiers (1) Valproic acid toxicity: Qualified Codes: T42.6X1A - Poisoning by other antiepileptic and sedative- hypnotic drugs, accidental (unintentional), initial encounter Sulma Talavera May 30, 2017 13:39
--- NOTE | 2017-05-30 14:54 | HHI.PYPN ---
Subjective Remarks Patient was seen and case discussed with nursing. She continues to complain of dry mouth is drinking water throughout the day. It does not appear that Seroquel is a new medication for her. She is no longer on Depakote. She has not had any outbursts or irritability. No pressured speech distractibility or poor concentration. Alert and oriented 2. Behaving well the unit. Denies suicidal homicidal ideation intent or plan Mental Status Examination Appearance: Appropriate Consciousness: Alert Orientation: x4 Motor Activity: Other (patient uses walker will get PT consult) Speech: Unremarkable Language: Adequate Fund of Knowledge: Adequate Attention and Concentration: Adequate Memory: Unremarkable Mood: Sad (mildly dysphoric) Affect: Other (slight decreased range and intensity) Thought Process & Associations: Intact Thought Content: Appropriate Hallucination Type: None Delusion Type: None Suicidal Ideation: No (denies) Suicidal Plan: No (denies) Suicidal Intention: No (denies) Homicidal Ideation: No Homicidal Plan: No Homicidal Intention: No Insight: Fair Judgment: Adequate Results Vitals/IOs Vital Signs Date Time Temp Pulse Resp B/P (MAP) Pulse Ox O2 Delivery O2 Flow Rate FiO2 05/30/17 06:22 97.6 83 18 142/94 (110) 98 Assessment & Plan Problem List: (1) Bipolar disorder, mixed ICD Codes: F31.60 - Bipolar disorder, current episode mixed, unspecified Status: Acute Assessment & Plan Continue current treatment plan Justification for Cont. Inpt. Patient would decompensate in a less restrictive setting Request HC Surrog/Guard Advoc?: No Chao Fung DO May 30, 2017 14:54
[2017-05-30 16:25] LABS: BICARBONATE 26.3 MEQ/L (21.0-32.0); CALCIUM 9.1 MG/DL (8.5-10.1); CREATININE 0.92 MG/DL (0.50-1.00)
[2017-05-30 18:28] VITALS: BP 177/86; PULSE 88; RESP 18; TEMP 97.4; O2SAT 99
[2017-05-30] MEDS: MIRTAZAPINE 15 MG TAB PO SCH (21:00)
[2017-05-31 05:43] VITALS: BP 173/72; PULSE 83; RESP 16; TEMP 97.8; O2SAT 96
[2017-05-31] MEDS: LEVOTHYROXINE SODIUM 50 MCG TAB PO SCH (06:33)
[2017-05-31] MEDS: amLODIPine BESYLATE 5 MG TAB PO SCH (10:19)
[2017-05-31] MEDS: QUEtiapine FUMARATE 25 MG TAB PO SCH (10:19)
[2017-05-31] MEDS: LISINOPRIL 5 MG TAB PO SCH (10:19)
[2017-05-31 10:21] VITALS: BP 154/76
[2017-05-31 11:29] LABS: BICARBONATE 25.5 MEQ/L (21.0-32.0); CALCIUM 8.9 MG/DL (8.5-10.1); CREATININE 1.01 MG/DL (0.50-1.00)
--- NOTE | 2017-05-31 12:56 | HHI.PR ---
Subjective Remarks Patient with COPD, hypertension, acute kidney injury. Patient seen and examined. Patient states she feels well. She denies any medical complaints. Discussed with THUY Parker no acute issues noted. Objective Vitals Vital Signs Date Time Temp Pulse Resp B/P (MAP) Pulse Ox O2 Delivery O2 Flow Rate FiO2 05/31/17 10:21 154/76 (102) 05/31/17 05:43 97.8 83 16 173/72 (105) 96 05/30/17 18:28 97.4 88 18 177/86 (116) 99 I/O 05/30/17 05/30/17 05/30/17 05/31/17 05/31/17 05/31/17 07:00 15:00 23:00 07:00 15:00 23:00 Intake Total 360 ml 480 ml Balance 360 ml 480 ml Intake Oral 360 ml 480 ml Result Diagram: 05/27/17 1230 05/31/17 0930 Objective Remarks GENERAL: This is a well-nourished, well-developed elderly petite female, in no apparent distress. Awake and alert. Ambulating in the unit. SKIN: Cool and dry. HEAD: Normocephalic. Atraumatic. EYES: Extraocular motions intact. No scleral icterus. No injection or drainage. ENT: Nose without bleeding or drainage. Airway patent. MMM. NECK: Trachea midline. CARDIOVASCULAR: Regular rate and rhythm without murmurs, gallops, or rubs. RESPIRATORY: Clear to auscultation. Breath sounds equal bilaterally. No wheezes , rales, or rhonchi. GASTROINTESTINAL: Abdomen soft, non-tender, nondistended. Bowel sounds active 4. MUSCULOSKELETAL: Extremities without clubbing, cyanosis, or edema. NEUROLOGICAL: Awake and alert. Able to move all extremities spontaneously. Motor and sensory grossly within normal limits. Normal speech. Medications and IVs Current Medications Medications (Trade) Dose Ordered Sig/Tammy Route Start Time Stop Time Status Last Admin (Atarax) 50 mg Q6H PRN PO 05/27/17 23:00 (Benadryl) 50 mg HS PRN PO 05/27/17 23:00 05/28/17 00:00 (Tylenol) 650 mg Q4H PRN PO 05/27/17 23:00 (Milk Of Magnesia Liq) 30 ml DAILY PRN PO 05/27/17 23:00 (Mag-Al Plus Susp Liq) 30 ml Q6H PRN PO 05/27/17 23:00 (Synthroid) 50 mcg DAILY@0600 PO 05/28/17 06:00 05/31/17 06:33 (Prinivil) 5 mg DAILY PO 05/28/17 09:00 05/31/17 10:19 (SEROquel) 50 mg BID PO 05/28/17 21:00 05/31/17 10:19 (Remeron) 7.5 mg HS PO 05/28/17 21:00 05/30/17 21:00 (Pill Splitter) 1 ea UNSCH PRN OTHER 05/28/17 13:00 (Catapres) 0.1 mg Q6H PRN PO 05/28/17 16:45 (Norvasc) 5 mg DAILY PO 05/29/17 09:00 05/31/17 10:19 A/P Problem List: (1) MIGUEL (generalized anxiety disorder) ICD Code: F41.1 - MIGUEL (generalized anxiety disorder) Status: Acute (2) Mood disorder ICD Code: F39 - Mood disorder Status: Acute (3) Valproic acid toxicity ICD Code: T42.6X1A - Poisoning by other antiepileptic and sedative-hypnotic drugs, accidental (unintentional), initial encounter Status: Acute (4) Bipolar disorder, mixed ICD Code: F31.60 - Bipolar disorder, current episode mixed, unspecified Status: Acute Assessment and Plan Patient is a 76-year-old female with primary medical history of arthritis, anxiety, COPD, GERD who came into the hospital from assisted living facility for psychiatric evaluation. Review of records, patient was noted to have increasing anxiety and manic behaviors. She is now admitted to inpatient psychiatry unit for further evaluation. Consulted for medical management. Bipolar disorder, anxiety - Managed by psychiatry team HTN - Better controlled - Hold ACEI due to MAHSA. Increase amlodipine dose to 10 mg daily. - Standing BP this morning 154/76 prior to being given any antihypertensive medications. Would treat standing blood pressures only. - Continue to monitor BP COPD, not in exacerbation - Continue to monitor respiratory status. DuoNeb's when necessary Acute kidney injury - hold ACEI - Avoid nephrotoxins - Continue to encourage by mouth fluid intake - Repeat BMP in 2 days Hyperkalemia -Potassium level 5.4, suspect hemolysis -Repeat potassium level History of right hip surgery - Monitor for risk for falls. PT eval and treat if necessary DVT prop - patient is ambulatory Problem Qualifiers (1) Valproic acid toxicity: Qualified Codes: T42.6X1A - Poisoning by other antiepileptic and sedative- hypnotic drugs, accidental (unintentional), initial encounter Sulma Talavera May 31, 2017 12:55
--- NOTE | 2017-05-31 13:11 | HHI.PYPN ---
Subjective Remarks Patient was seen and case discussed with nursing. she'll complaint today is insomnia having only slept a couple hours. She continues to be hypertensive and is being followed by the medical team. She has not had any agitated behavior arguments with anyone or any manic symptoms. Mental Status Examination Appearance: Appropriate Consciousness: Alert Orientation: x4 Motor Activity: Other (patient uses walker will get PT consult) Speech: Unremarkable Language: Adequate Fund of Knowledge: Adequate Attention and Concentration: Adequate Memory: Unremarkable Mood: Sad (mildly dysphoric) Affect: Other (slight decreased range and intensity) Thought Process & Associations: Intact Thought Content: Appropriate Hallucination Type: None Delusion Type: None Suicidal Ideation: No (denies) Suicidal Plan: No (denies) Suicidal Intention: No (denies) Homicidal Ideation: No Homicidal Plan: No Homicidal Intention: No Insight: Fair Judgment: Adequate Results Labs Test 05/30/17 15:27 05/31/17 09:30 Blood Urea Nitrogen 21 MG/DL 18 MG/DL Creatinine 0.92 MG/DL 1.01 MG/DL Random Glucose 100 MG/DL 106 MG/DL Calcium Level 9.1 MG/DL 8.9 MG/DL Sodium Level 139 MEQ/L 140 MEQ/L Potassium Level 4.6 MEQ/L 5.4 MEQ/L Chloride Level 106 MEQ/L 105 MEQ/L Carbon Dioxide Level 26.3 MEQ/L 25.5 MEQ/L Anion Gap 7 MEQ/L 10 MEQ/L Estimat Glomerular Filtration Rate 60 ML/MIN 53 ML/MIN Vitals/IOs Vital Signs Date Time Temp Pulse Resp B/P (MAP) Pulse Ox O2 Delivery O2 Flow Rate FiO2 05/31/17 10:21 154/76 (102) 05/31/17 05:43 97.8 83 16 96 Intake and Output 05/31/17 05/31/17 06/01/17 08:00 16:00 00:00 Intake Total 720 ml Balance 720 ml Assessment & Plan Problem List: (1) Bipolar disorder, mixed ICD Codes: F31.60 - Bipolar disorder, current episode mixed, unspecified Status: Acute Assessment & Plan Change Seroquel to 50 mg by mouth every morning 100 mg by mouth daily at bedtime Justification for Cont. Inpt. Patient will decompensate in a less restrictive setting Request HC Surrog/Guard Advoc?: No Chao Fung DO May 31, 2017 13:11
[2017-05-31] MEDS: MAGNESIUM HYDROXIDE SUSP 30 ML CUP PO PRN (17:17)
[2017-05-31 18:51] VITALS: BP 169/87; PULSE 99; RESP 16; TEMP 98.2; O2SAT 98
[2017-05-31] MEDS: MIRTAZAPINE 15 MG TAB PO SCH (22:19)
[2017-05-31] MEDS: QUEtiapine FUMARATE 100 MG TAB PO SCH (23:10)
[2017-06-01 05:59] VITALS: BP 135/74; PULSE 84; RESP 16; TEMP 97.8; O2SAT 96
[2017-06-01] MEDS: LEVOTHYROXINE SODIUM 50 MCG TAB PO SCH (06:37)
[2017-06-01] MEDS: QUEtiapine FUMARATE 25 MG TAB PO SCH (08:27)
[2017-06-01] MEDS: amLODIPine BESYLATE 5 MG TAB PO SCH (08:29)
--- NOTE | 2017-06-01 13:55 | HHI.PR ---
Subjective Remarks Patient with COPD, hypertension, acute kidney injury. Patient seen and examined. Patient denies any complaints except for dry mouth which she said she has had for many years. Denies any dizziness or lightheadedness. Denies any fever chills. Denies any chest pain or shortness of breath Objective Vitals Vital Signs Date Time Temp Pulse Resp B/P (MAP) Pulse Ox O2 Delivery O2 Flow Rate FiO2 06/01/17 05:59 97.8 84 16 135/74 (94) 96 05/31/17 18:51 98.2 99 16 169/87 (114) 98 I/O 05/31/17 05/31/17 05/31/17 06/01/17 06/01/17 06/01/17 07:00 15:00 23:00 07:00 15:00 23:00 Intake Total 720 ml 240 ml 240 ml Balance 720 ml 240 ml 240 ml Intake Oral 720 ml 240 ml 240 ml Result Diagram: 05/31/17 6268 Objective Remarks GENERAL: This is a well-nourished, well-developed elderly petite female, in no apparent distress. Awake and alert. Sitting up in chair in the day room. SKIN: Cool and dry. HEAD: Normocephalic. Atraumatic. EYES: Extraocular motions intact. No scleral icterus. No injection or drainage. ENT: Nose without bleeding or drainage. Airway patent. MMM. NECK: Trachea midline. CARDIOVASCULAR: Regular rate and rhythm without murmurs, gallops, or rubs. RESPIRATORY: Clear to auscultation. Breath sounds equal bilaterally. No wheezes , rales, or rhonchi. GASTROINTESTINAL: Abdomen soft, non-tender, nondistended. Bowel sounds active 4. MUSCULOSKELETAL: Extremities without clubbing, cyanosis, or edema. NEUROLOGICAL: Awake and alert. Able to move all extremities spontaneously. Motor and sensory grossly within normal limits. Normal speech. Medications and IVs Current Medications Medications (Trade) Dose Ordered Sig/Tammy Route Start Time Stop Time Status Last Admin (Atarax) 50 mg Q6H PRN PO 05/27/17 23:00 (Benadryl) 50 mg HS PRN PO 05/27/17 23:00 05/28/17 00:00 (Tylenol) 650 mg Q4H PRN PO 05/27/17 23:00 (Milk Of Magnesia Liq) 30 ml DAILY PRN PO 05/27/17 23:00 05/31/17 17:17 (Mag-Al Plus Susp Liq) 30 ml Q6H PRN PO 05/27/17 23:00 (Synthroid) 50 mcg DAILY@0600 PO 05/28/17 06:00 06/01/17 06:37 (Prinivil) 5 mg DAILY PO 05/28/17 09:00 Future Hold 05/31/17 10:19 (Remeron) 7.5 mg HS PO 05/28/17 21:00 05/31/17 22:19 (Pill Splitter) 1 ea UNSCH PRN OTHER 05/28/17 13:00 (Catapres) 0.1 mg Q6H PRN PO 05/28/17 16:45 (SEROquel) 100 mg HS PO 05/31/17 21:00 05/31/17 23:10 (SEROquel) 50 mg DAILY PO 06/01/17 09:00 06/01/17 08:27 (Norvasc) 5 mg DAILY PO 06/01/17 09:00 06/01/17 08:29 A/P Problem List: (1) MIGUEL (generalized anxiety disorder) ICD Code: F41.1 - MIGUEL (generalized anxiety disorder) Status: Acute (2) Mood disorder ICD Code: F39 - Mood disorder Status: Acute (3) Valproic acid toxicity ICD Code: T42.6X1A - Poisoning by other antiepileptic and sedative-hypnotic drugs, accidental (unintentional), initial encounter Status: Acute (4) Bipolar disorder, mixed ICD Code: F31.60 - Bipolar disorder, current episode mixed, unspecified Status: Acute Assessment and Plan Patient is a 76-year-old female with primary medical history of arthritis, anxiety, COPD, GERD who came into the hospital from assisted living facility for psychiatric evaluation. Review of records, patient was noted to have increasing anxiety and manic behaviors. She is now admitted to inpatient psychiatry unit for further evaluation. Consulted for medical management. Bipolar disorder, anxiety - Managed by psychiatry team HTN - Better controlled - Hold ACEI due to MAHSA. Continue Norvasc 5mg daily. - Standing BP this morning 154/76 prior to being given any antihypertensive medications. Would treat standing blood pressures only. - Continue to monitor BP COPD, not in exacerbation - Continue to monitor respiratory status. DuoNeb's when necessary Acute kidney injury - hold ACEI - Avoid nephrotoxins - Continue to encourage by mouth fluid intake - Repeat BMP in 2 days Hyperkalemia -Potassium level 5.4, suspect hemolysis -Repeat potassium level WNL History of right hip surgery - Monitor for risk for falls. PT eval and treat if necessary Oral sicca syndrome - Suspect age-related - Patient may benefit from ENT evaluation as outpatient DVT prop - patient is ambulatory Problem Qualifiers (1) Valproic acid toxicity: Qualified Codes: T42.6X1A - Poisoning by other antiepileptic and sedative- hypnotic drugs, accidental (unintentional), initial encounter Sulma Talavera Jun 01, 2017 13:55
--- NOTE | 2017-06-01 14:08 | PD.TTN ---
Patient Problems 1. Discharge planning 2. Medication compliance 3. Knowledge deficit 4. Lack of coping skills Progress Toward Goals Provider Present: Dr. Lindsey Fields Provider Input: 06/01/17 - Patient has not been any behavioral problem since admission. Psychiatric Counselors Present: RUDY Boss Psych Therapist Input: 06/01/17 - Counselor will speak with the patient and her family redarding plan for discharge. Group Spec/RT/OT/RODRIGUEZ Present: Jas Price OT Group Spec/RT/OT/RODRIGUEZ Input: 06/01/17 - Patient attends select groups. Discharge Plan [facility] Documentation Scribe: RUDY Boss Date Resolved: Jun 01, 2017 Shahla Rockwell Jun 01, 2017 14:08
--- NOTE | 2017-06-01 15:29 | HHI.PYPN ---
Subjective Remarks Patient seen in [place] with medical student Quentin, chart reviewed, patient discussed with nurse, patient continues calm appropriate at times somewhat intrusive. She states she slept better last night. The dry mouth and throat still bother her but appears to be somewhat less than yesterday. For now continue treatment Review of Systems Except as stated in HPI: all other systems reviewed are Neg Mental Status Examination Appearance: Appropriate Consciousness: Alert Orientation: x4 Motor Activity: Other (patient uses walker will get PT consult) Speech: Unremarkable Language: Adequate Fund of Knowledge: Adequate Attention and Concentration: Adequate Memory: Unremarkable Mood: Sad (mildly dysphoric) Affect: Other (slight decreased range and intensity) Thought Process & Associations: Intact Thought Content: Appropriate Hallucination Type: None Delusion Type: None Suicidal Ideation: No (denies) Suicidal Plan: No (denies) Suicidal Intention: No (denies) Homicidal Ideation: No Homicidal Plan: No Homicidal Intention: No Insight: Fair Judgment: Adequate Results Labs Test 05/31/17 16:44 Potassium Level 4.4 MEQ/L Vitals/IOs Vital Signs Date Time Temp Pulse Resp B/P (MAP) Pulse Ox O2 Delivery O2 Flow Rate FiO2 06/01/17 05:59 97.8 84 16 135/74 (94) 96 Intake and Output 06/01/17 06/01/17 06/02/17 08:00 16:00 00:00 Intake Total 240 ml Balance 240 ml Assessment & Plan Problem List: (1) Bipolar disorder, mixed ICD Codes: F31.60 - Bipolar disorder, current episode mixed, unspecified Status: Acute Assessment & Plan Estimated LOS: days patient somewhat calmer her paranoia is diminished the anxiety related to that dry mouth and swallowing issues is also dissipated. For now continue treatment Justification for Cont. Inpt. At this time patient decompensated place to the lower level of care Discharge Planning Return home Request HC Surrog/Guard Advoc?: No Akhil Fields MD Jun 01, 2017 15:29
[2017-06-01] MEDS: AQUAPHOR OINT 50 GM TUBE TOPICAL SCH ×2 (16:23→21:00)
[2017-06-01 18:03] VITALS: BP 138/74; PULSE 100; RESP 15; TEMP 97.3; O2SAT 97
[2017-06-01] MEDS: QUEtiapine FUMARATE 100 MG TAB PO SCH (21:00)
[2017-06-01] MEDS: MIRTAZAPINE 15 MG TAB PO SCH (21:00)
[2017-06-02] MEDS: LEVOTHYROXINE SODIUM 50 MCG TAB PO SCH (06:46)
[2017-06-02 08:00] VITALS: BP 161/72; PULSE 115; RESP 16; TEMP 97.8; O2SAT 95
[2017-06-02] MEDS: AQUAPHOR OINT 50 GM TUBE TOPICAL SCH ×2 (08:50→21:09)
[2017-06-02] MEDS: amLODIPine BESYLATE 5 MG TAB PO SCH (08:50)
[2017-06-02] MEDS: QUEtiapine FUMARATE 25 MG TAB PO SCH (08:50)
[2017-06-02 12:59] VITALS: BP 179/71; PULSE 93
--- NOTE | 2017-06-02 13:04 | HHI.PR ---
Subjective Remarks Patient with COPD, hypertension, acute kidney injury. Patient seen and examined in chair in the day room, she denies any fevers, chills, N/V/D, headache, SOB, cough, chest pain or palpitations. She denies any pain or discomfort at the moment, spoke with tech and nurse. HR and BP elevated this AM, no repots of agitation. Objective Vitals Vital Signs Date Time Temp Pulse Resp B/P (MAP) Pulse Ox O2 Delivery O2 Flow Rate FiO2 06/02/17 12:59 93 179/71 (107) 06/02/17 08:00 97.8 115 16 161/72 (101) 95 06/01/17 18:03 97.3 100 15 138/74 (95) 97 I/O 06/01/17 06/01/17 06/01/17 06/02/17 06/02/17 06/02/17 07:00 15:00 23:00 07:00 15:00 23:00 Intake Total 240 ml 240 ml Balance 240 ml 240 ml Intake Oral 240 ml 240 ml Result Diagram: 05/31/17 1644 Objective Remarks GENERAL: This is a well-nourished, well-developed elderly female, in no apparent distress. Awake and alert. SKIN: Cool and dry. HEAD: Normocephalic. Atraumatic. EYES: Pupils round and reactive. No scleral icterus. No injection or drainage. ENT: Nose without bleeding or drainage. Airway patent. NECK: Trachea midline. CARDIOVASCULAR: Regular rate and rhythm without murmurs, gallops, or rubs. RESPIRATORY: Clear to auscultation. Breath sounds equal bilaterally. No wheezes , rales, or rhonchi. GASTROINTESTINAL: Abdomen soft, non-tender, nondistended. Bowel sounds active 4. MUSCULOSKELETAL: Extremities without clubbing, cyanosis, or edema. NEUROLOGICAL: Awake and alert. Able to move all extremities spontaneously. Motor and sensory grossly within normal limits. Normal speech. A/P Problem List: (1) MIGUEL (generalized anxiety disorder) ICD Code: F41.1 - MIGUEL (generalized anxiety disorder) Status: Acute (2) Mood disorder ICD Code: F39 - Mood disorder Status: Acute (3) Valproic acid toxicity ICD Code: T42.6X1A - Poisoning by other antiepileptic and sedative-hypnotic drugs, accidental (unintentional), initial encounter Status: Acute (4) Bipolar disorder, mixed ICD Code: F31.60 - Bipolar disorder, current episode mixed, unspecified Status: Acute Assessment and Plan Patient is a 76-year-old female with primary medical history of arthritis, anxiety, COPD, GERD who came into the hospital from assisted living facility for psychiatric evaluation. Review of records, patient was noted to have increasing anxiety and manic behaviors. She is now admitted to inpatient psychiatry unit for further evaluation. Consulted for medical management. Bipolar disorder, anxiety - Managed by psychiatry team HTN,uncontrolled - BP and HR elevated this AM, recheck BP while sitting 179/71, will increase Norvasc to 10mg daily - Hold ACEI due to MAHSA. - Continue to monitor BP and HR COPD, not in exacerbation - Continue to monitor respiratory status. DuoNeb's when necessary Acute kidney injury - hold ACEI - Avoid nephrotoxins - Continue to encourage by mouth fluid intake - Repeat BMP today, yet to be drawn History of right hip surgery - Monitor for risk for falls. PT eval and treat if necessary Oral sicca syndrome - Suspect age-related - Patient may benefit from ENT evaluation as outpatient DVT prop - patient is ambulatory Discussed with nurse. Problem Qualifiers (1) Valproic acid toxicity: Qualified Codes: T42.6X1A - Poisoning by other antiepileptic and sedative- hypnotic drugs, accidental (unintentional), initial encounter Jermain Anna Jun 02, 2017 13:04
[2017-06-02] MEDS ORDERED: amLODIPine BESYLATE 5 MG TAB PO ONE (13:15)
--- NOTE | 2017-06-02 15:03 | HHI.PYPN ---
Subjective Remarks Patient seen in [place] with nurse Nicolas and medical student Quentin. Patient somewhat calmer stating she slept better last night. She still complains of a dry mouth accuses some mild anxiety however she also explains that going to bed later in the evening 10 or 10:30 and having a glass of ice cubes that she can suck on a little bit is loud his sleep quite well. She states at her detention there is a 9 PM curfew. There is not the availability of ice cubes. For now continue treatment no change Review of Systems Except as stated in HPI: all other systems reviewed are Neg Mental Status Examination Appearance: Appropriate Consciousness: Alert Orientation: x4 Motor Activity: Other (patient uses walker will get PT consult) Speech: Unremarkable Language: Adequate Fund of Knowledge: Adequate Attention and Concentration: Adequate Memory: Unremarkable Mood: Sad (mildly dysphoric) Affect: Other (slight decreased range and intensity) Thought Process & Associations: Intact Thought Content: Appropriate Hallucination Type: None Delusion Type: None Suicidal Ideation: No (denies) Suicidal Plan: No (denies) Suicidal Intention: No (denies) Homicidal Ideation: No Homicidal Plan: No Homicidal Intention: No Insight: Fair Judgment: Adequate Results Vitals/IOs Vital Signs Date Time Temp Pulse Resp B/P (MAP) Pulse Ox O2 Delivery O2 Flow Rate FiO2 06/02/17 12:59 93 179/71 (107) 06/02/17 08:00 97.8 16 95 Intake and Output 06/02/17 06/02/17 06/03/17 08:00 16:00 00:00 Intake Total 240 ml Balance 240 ml Assessment & Plan Problem List: (1) Bipolar disorder, mixed ICD Codes: F31.60 - Bipolar disorder, current episode mixed, unspecified Status: Acute Assessment & Plan Estimated LOS: days patient somewhat calmer today. Did sleep better with being allowed to stay up longer and have some ice chips available will need to talk with detention about this Justification for Cont. Inpt. At this time patient decompensated placed a lower level of care Discharge Planning Probable return to detention Request HC Surrog/Guard Advoc?: No Akhil Fields MD Jun 02, 2017 15:03
[2017-06-02 17:56] VITALS: BP 157/74; PULSE 98; RESP 17; TEMP 97.8; O2SAT 97
[2017-06-02] MEDS: QUEtiapine FUMARATE 100 MG TAB PO SCH (21:00)
[2017-06-02] MEDS: MAGNESIUM HYDROXIDE SUSP 30 ML CUP PO PRN (21:04)
[2017-06-02] MEDS: MIRTAZAPINE 15 MG TAB PO SCH (21:07)
[2017-06-03] MEDS: LEVOTHYROXINE SODIUM 50 MCG TAB PO SCH (05:58)
[2017-06-03 06:06] VITALS: BP 154/72; PULSE 88; RESP 16; TEMP 98.1
[2017-06-03] MEDS: AQUAPHOR OINT 50 GM TUBE TOPICAL SCH ×2 (09:11→20:08)
[2017-06-03] MEDS: QUEtiapine FUMARATE 25 MG TAB PO SCH (09:11)
[2017-06-03] MEDS: DOCUSATE SODIUM 50 MG/SENNA 8.6 MG TAB PO SCH (09:30)
--- NOTE | 2017-06-03 10:27 | PD.TTN ---
Patient Problems 1. Discharge planning 2. Medication compliance 3. Knowledge deficit 4. Lack of coping skills Progress Toward Goals Provider Present: Dr. Lindsey Fields Provider Input: 06/03/17 - Dr. Fields reports that the patient making improvements. Patient informed Dr. Fields that she slept better last night because she went to bed at 10:30 p.m. Patient reports that she enjoys staying up later because it helps her sleep. 06/01/17 - Patient has not been any behavioral problem since admission. Psychiatric Counselors Present: RUDY Boss Psych Therapist Input: 06/03/17 - Patient will return to [facility] when stable. Counselor will speak to [facility] to report that the patient sleeps better when she is permitted to stay up until 10:30 p.m. 06/01/17 - Counselor will speak with the patient and her family regarding plan for discharge. Group Spec/RT/OT/RODRIGUEZ Present: JENNIFER Mcmillan, Jas Price, OT Group Spec/RT/OT/RODRIGUEZ Input: 06/03/17 - Patient attends select groups. 06/01/17 - Patient attends select groups. Discharge Plan [facility] 06/03/17 - Patient will return to [facility] when stable. Documentation Scribe: RUDY Boss Date Resolved: Jun 03, 2017 Shahla Rockwell Jun 03, 2017 10:27
[2017-06-03 11:06] LABS: BICARBONATE 29.1 MEQ/L (21.0-32.0); CALCIUM 9.3 MG/DL (8.5-10.1); CREATININE 0.96 MG/DL (0.50-1.00)
--- NOTE | 2017-06-03 11:52 | HHI.PR ---
Subjective Remarks Follow-up visit for COPD, hypertension, and acute kidney injury. Patient seen and examined siting up in the day room. She denies any headaches, lightheadedness, fevers, chills, nausea, vomiting or diarrhea. No acute complaints today. Objective Vitals Vital Signs Date Time Temp Pulse Resp B/P (MAP) Pulse Ox O2 Delivery O2 Flow Rate FiO2 06/03/17 06:06 98.1 88 16 154/72 (99) 06/02/17 17:56 97.8 98 17 157/74 (101) 97 06/02/17 12:59 93 179/71 (107) I/O 06/02/17 06/02/17 06/02/17 06/03/17 06/03/17 06/03/17 06:59 14:59 22:59 06:59 14:59 22:59 Intake Total 240 ml 480 ml Balance 240 ml 480 ml Intake Oral 240 ml 480 ml Result Diagram: 06/03/17 0844 Objective Remarks GENERAL: This is a well-nourished, well-developed elderly female, in no apparent distress. Awake and alert. SKIN: Cool and dry. HEAD: Normocephalic. Atraumatic. EYES: Pupils round and reactive. No scleral icterus. No injection or drainage. ENT: Nose without bleeding or drainage. Airway patent. NECK: Trachea midline. CARDIOVASCULAR: Regular rate and rhythm without murmurs, gallops, or rubs. RESPIRATORY: Clear to auscultation. Breath sounds equal bilaterally. No wheezes , rales, or rhonchi. GASTROINTESTINAL: Abdomen soft, non-tender, nondistended. Bowel sounds active 4. MUSCULOSKELETAL: Extremities without clubbing, cyanosis, or edema. NEUROLOGICAL: Awake and alert. Able to move all extremities spontaneously. Motor and sensory grossly within normal limits. Normal speech. A/P Problem List: (1) MIGUEL (generalized anxiety disorder) ICD Code: F41.1 - MIGUEL (generalized anxiety disorder) Status: Acute (2) Mood disorder ICD Code: F39 - Mood disorder Status: Acute (3) Valproic acid toxicity ICD Code: T42.6X1A - Poisoning by other antiepileptic and sedative-hypnotic drugs, accidental (unintentional), initial encounter Status: Acute (4) Bipolar disorder, mixed ICD Code: F31.60 - Bipolar disorder, current episode mixed, unspecified Status: Acute Assessment and Plan Patient is a 76-year-old female with primary medical history of arthritis, anxiety, COPD, GERD who came into the hospital from assisted living facility for psychiatric evaluation. Review of records, patient was noted to have increasing anxiety and manic behaviors. She is now admitted to inpatient psychiatry unit for further evaluation. Consulted for medical management. Bipolar disorder, anxiety - Managed by psychiatry team HTN, mildly elevated - BP this morning continues to be slightly elevated despite increasing Norvasc to 10mg daily, renal function better, restart lisinopril. - Continue to monitor BP and HR COPD, not in exacerbation - Continue to monitor respiratory status. DuoNeb's when necessary Acute kidney injury -BMP from this morning reviewed, improvement in renal function - Avoid nephrotoxins - Continue to encourage by mouth fluid intake History of right hip surgery - Monitor for risk for falls. PT eval and treat if necessary Oral sicca syndrome - Suspect age-related - Patient may benefit from ENT evaluation as outpatient DVT prop - patient is ambulatory Discussed with nurse. Problem Qualifiers (1) Valproic acid toxicity: Qualified Codes: T42.6X1A - Poisoning by other antiepileptic and sedative- hypnotic drugs, accidental (unintentional), initial encounter Jermain Anna Jun 03, 2017 11:52
--- NOTE | 2017-06-03 16:12 | HHI.PYPN ---
Subjective Remarks Patient seen in all of her December chart reviewed, patient discussed with nurse. Patient states she slept better again last night. Compliant with medications. Did have a cup of ice near her bed and that seemed to be somewhat of a pacifier for her. Denies suicidality homicidality voices or visions. For now continue treatment Review of Systems Except as stated in HPI: all other systems reviewed are Neg Mental Status Examination Appearance: Appropriate Consciousness: Alert Orientation: x4 Motor Activity: Other (patient uses walker will get PT consult) Speech: Unremarkable Language: Adequate Fund of Knowledge: Adequate Attention and Concentration: Adequate Memory: Unremarkable Mood: Sad (mildly dysphoric) Affect: Other (slight decreased range and intensity) Thought Process & Associations: Intact Thought Content: Appropriate Hallucination Type: None Delusion Type: None Suicidal Ideation: No (denies) Suicidal Plan: No (denies) Suicidal Intention: No (denies) Homicidal Ideation: No Homicidal Plan: No Homicidal Intention: No Insight: Fair Judgment: Adequate Results Labs Test 06/03/17 08:44 Blood Urea Nitrogen 16 MG/DL Creatinine 0.96 MG/DL Random Glucose 94 MG/DL Calcium Level 9.3 MG/DL Sodium Level 141 MEQ/L Potassium Level 4.9 MEQ/L Chloride Level 106 MEQ/L Carbon Dioxide Level 29.1 MEQ/L Anion Gap 6 MEQ/L Estimat Glomerular Filtration Rate 57 ML/MIN Vitals/IOs Vital Signs Date Time Temp Pulse Resp B/P (MAP) Pulse Ox O2 Delivery O2 Flow Rate FiO2 06/03/17 06:06 98.1 88 16 154/72 (99) 06/02/17 17:56 97 Assessment & Plan Problem List: (1) Bipolar disorder, mixed ICD Codes: F31.60 - Bipolar disorder, current episode mixed, unspecified Status: Acute Assessment & Plan Estimated LOS: days patient calm cooperative appears to be improving. Slight decrease in her perseveration on her dry mouth and how it affects her swallowing and breathing. She slept better last night. For now continue treatment Justification for Cont. Inpt. This time patient decompensated placed in lower level of care Discharge Planning Return home Request HC Surrog/Guard Advoc?: No Akhil Fields MD Jun 03, 2017 16:12
[2017-06-03 18:00] VITALS: BP 140/86; PULSE 100; RESP 17; TEMP 97.5; O2SAT 98
[2017-06-03] MEDS: QUEtiapine FUMARATE 100 MG TAB PO SCH (22:10)
[2017-06-03] MEDS: MIRTAZAPINE 15 MG TAB PO SCH (22:10)
[2017-06-04 05:20] VITALS: BP 110/58; PULSE 86; RESP 17; TEMP 98.4; O2SAT 96
[2017-06-04] MEDS: LEVOTHYROXINE SODIUM 50 MCG TAB PO SCH (06:03)
[2017-06-04] MEDS: QUEtiapine FUMARATE 25 MG TAB PO SCH (08:47)
[2017-06-04] MEDS: DOCUSATE SODIUM 50 MG/SENNA 8.6 MG TAB PO SCH (08:47)
[2017-06-04] MEDS: LISINOPRIL 5 MG TAB PO SCH (08:48)
[2017-06-04] MEDS: AQUAPHOR OINT 50 GM TUBE TOPICAL SCH ×2 (09:00→20:47)
--- NOTE | 2017-06-04 12:06 | HHI.PR ---
Subjective Remarks Follow-up visit for COPD, hypertension, and acute kidney injury. Patient seen and examined siting in day room. She repots she had a hard time sleeping last night, no other acute concerns. Denies any headache, dizziness, leg swelling, SOB, fevers, N/V/D, or rash. Objective Vitals Vital Signs Date Time Temp Pulse Resp B/P (MAP) Pulse Ox O2 Delivery O2 Flow Rate FiO2 06/04/17 05:20 98.4 86 17 110/58 (75) 96 06/03/17 18:00 97.5 100 17 140/86 (104) 98 Result Diagram: 06/03/17 0844 Objective Remarks GENERAL: This is a well-nourished, well-developed elderly female, in no apparent distress. Awake and alert. SKIN: Cool and dry. HEAD: Normocephalic. Atraumatic. EYES: Pupils round and reactive. No scleral icterus. No injection or drainage. ENT: Nose without bleeding or drainage. Airway patent. NECK: Trachea midline. CARDIOVASCULAR: Regular rate and rhythm without murmurs, gallops, or rubs. RESPIRATORY: Clear to auscultation. Breath sounds equal bilaterally. No wheezes , rales, or rhonchi. GASTROINTESTINAL: Abdomen soft, non-tender, nondistended. Bowel sounds active 4. MUSCULOSKELETAL: Extremities without clubbing, cyanosis, or edema. NEUROLOGICAL: Awake and alert. Able to move all extremities spontaneously. Motor and sensory grossly within normal limits. Normal speech. A/P Problem List: (1) MIGUEL (generalized anxiety disorder) ICD Code: F41.1 - MIGUEL (generalized anxiety disorder) Status: Acute (2) Mood disorder ICD Code: F39 - Mood disorder Status: Acute (3) Valproic acid toxicity ICD Code: T42.6X1A - Poisoning by other antiepileptic and sedative-hypnotic drugs, accidental (unintentional), initial encounter Status: Acute (4) Bipolar disorder, mixed ICD Code: F31.60 - Bipolar disorder, current episode mixed, unspecified Status: Acute Assessment and Plan Patient is a 76-year-old female with primary medical history of arthritis, anxiety, COPD, GERD who came into the hospital from assisted living facility for psychiatric evaluation. Review of records, patient was noted to have increasing anxiety and manic behaviors. She is now admitted to inpatient psychiatry unit for further evaluation. Consulted for medical management. Bipolar disorder, anxiety - Managed by psychiatry team HTN, controlled - BP stable, continue Norvasc to 10mg daily, and lisinopril 5mg daily. - Continue to monitor BP and HR COPD, not in exacerbation - Continue to monitor respiratory status. DuoNeb's when necessary Acute kidney injury - Improvement in renal function - Avoid nephrotoxins - Continue to encourage by mouth fluid intake History of right hip surgery - Monitor for risk for falls. PT eval and treat if necessary Oral sicca syndrome - Suspect age-related - Patient may benefit from ENT evaluation as outpatient DVT prop - patient is ambulatory Discussed with nurse. [facility] will sign off, there is a pending BMP for 06/06, if renal function declines once again, please reconsult. Thank you. Problem Qualifiers (1) Valproic acid toxicity: Qualified Codes: T42.6X1A - Poisoning by other antiepileptic and sedative- hypnotic drugs, accidental (unintentional), initial encounter Jermain Anna Jun 04, 2017 12:06
--- NOTE | 2017-06-04 13:16 | HHI.PYPN ---
Subjective Remarks Patient seen in dayroom the floor staff, chart review, patient discussed with nurse. Patient states did not sleep as well last night as the night before. Continues to dry mouth with slightly increased anxiety and mild paranoia. Patient compliant with medications. Denies voices or visions. Denies suicidality. For now will change a.m. Seroquel to 6 PM. Continue other medications no change Review of Systems Except as stated in HPI: all other systems reviewed are Neg Mental Status Examination Appearance: Appropriate Consciousness: Alert Orientation: x4 Motor Activity: Other (patient uses walker will get PT consult) Speech: Unremarkable Language: Adequate Fund of Knowledge: Adequate Attention and Concentration: Adequate Memory: Unremarkable Mood: Sad (mildly dysphoric) Affect: Other (slight decreased range and intensity) Thought Process & Associations: Intact Thought Content: Appropriate Hallucination Type: None Delusion Type: None Suicidal Ideation: No (denies) Suicidal Plan: No (denies) Suicidal Intention: No (denies) Homicidal Ideation: No Homicidal Plan: No Homicidal Intention: No Insight: Fair Judgment: Adequate Results Vitals/IOs Vital Signs Date Time Temp Pulse Resp B/P (MAP) Pulse Ox O2 Delivery O2 Flow Rate FiO2 06/04/17 05:20 98.4 86 17 110/58 (75) 96 Assessment & Plan Problem List: (1) Bipolar disorder, mixed ICD Codes: F31.60 - Bipolar disorder, current episode mixed, unspecified Status: Acute Assessment & Plan Estimated LOS: days patient continues lithium marked obsessing with her dry mouth difficulty swallowing mainly late in the evening and through bedtime. Says that I do not helpers much last night as the night before. Patient showing no significant behaviors during the day. She medication adjustment above Justification for Cont. Inpt. At this time patient with decompensated placed in a lower level of care Discharge Planning Probable return home to family Request HC Surrog/Guard Advoc?: No Akhil Fields MD Jun 04, 2017 13:15
[2017-06-04] MEDS ORDERED: QUEtiapine FUMARATE 25 MG TAB PO SCH (18:00)
[2017-06-04 18:24] VITALS: BP 139/74; PULSE 95; RESP 17; TEMP 98.1; O2SAT 99
[2017-06-04] MEDS: MIRTAZAPINE 15 MG TAB PO SCH (20:46)
[2017-06-04] MEDS: QUEtiapine FUMARATE 100 MG TAB PO SCH (20:46)
[2017-06-04] MEDS: diphenhydrAMINE HCL 50 MG CAP - HS PRN PO (20:48)
[2017-06-05] MEDS: LEVOTHYROXINE SODIUM 50 MCG TAB PO SCH (05:33)
[2017-06-05 05:57] VITALS: BP 141/65; PULSE 92; RESP 16; TEMP 98; O2SAT 95
[2017-06-05] MEDS: AQUAPHOR OINT 50 GM TUBE TOPICAL SCH ×2 (08:10→21:03)
[2017-06-05] MEDS: LISINOPRIL 5 MG TAB PO SCH (08:11)
[2017-06-05] MEDS: DOCUSATE SODIUM 50 MG/SENNA 8.6 MG TAB PO SCH (08:11)
--- NOTE | 2017-06-05 15:01 | HHI.PYPN ---
Subjective Remarks Patient seen in [place] with nurse Donna and medical student Quentin, patient states she slept better again last night though she continues to hear 8 a grinding whistling type noise in her head. This appears to persist all day though she still is able to sleep through the night. Will change Seroquel 50 mg at 6 PM continue Seroquel 25 mg 8 AM noon and 4 PM continue at bedtime dose no change. Patient does denies suicidality Review of Systems Except as stated in HPI: all other systems reviewed are Neg Mental Status Examination Appearance: Appropriate Consciousness: Alert Orientation: x4 Motor Activity: Other (patient uses walker will get PT consult) Speech: Unremarkable Language: Adequate Fund of Knowledge: Adequate Attention and Concentration: Adequate Memory: Unremarkable Mood: Sad (mildly dysphoric) Affect: Other (slight decreased range and intensity) Thought Process & Associations: Intact Thought Content: Appropriate Hallucination Type: None Delusion Type: None Suicidal Ideation: No (denies) Suicidal Plan: No (denies) Suicidal Intention: No (denies) Homicidal Ideation: No Homicidal Plan: No Homicidal Intention: No Insight: Fair Judgment: Adequate Results Vitals/IOs Vital Signs Date Time Temp Pulse Resp B/P (MAP) Pulse Ox O2 Delivery O2 Flow Rate FiO2 06/05/17 05:57 98.0 92 16 141/65 (90) 95 Assessment & Plan Problem List: (1) Bipolar disorder, mixed ICD Codes: F31.60 - Bipolar disorder, current episode mixed, unspecified Status: Acute Assessment & Plan Estimated LOS: days patient remains somewhat psychotic though calm pleasant and appropriate. Please see medication adjustment above Justification for Cont. Inpt. At this time patient Stated placed a lower level of care Discharge Planning Return home with Request HC Surrog/Guard Advoc?: No Akhil Fields MD Jun 05, 2017 15:01
[2017-06-05] MEDS: QUEtiapine FUMARATE 25 MG TAB PO SCH (16:00)
[2017-06-05] MEDS: QUEtiapine FUMARATE 100 MG TAB PO SCH (21:03)
[2017-06-05] MEDS: MIRTAZAPINE 15 MG TAB PO SCH (21:03)
[2017-06-05] MEDS: diphenhydrAMINE HCL 50 MG CAP - HS PRN PO (21:03)
[2017-06-06 05:00] VITALS: BP 124/67; PULSE 84; RESP 16; TEMP 97.8; O2SAT 96
[2017-06-06] MEDS: LEVOTHYROXINE SODIUM 50 MCG TAB PO SCH (05:44)
[2017-06-06] MEDS: LISINOPRIL 5 MG TAB PO SCH (08:38)
[2017-06-06] MEDS: DOCUSATE SODIUM 50 MG/SENNA 8.6 MG TAB PO SCH (08:39)
[2017-06-06] MEDS: QUEtiapine FUMARATE 25 MG TAB PO SCH ×3 (08:40→16:58)
[2017-06-06] MEDS: AQUAPHOR OINT 50 GM TUBE TOPICAL SCH ×2 (08:43→21:00)
[2017-06-06] MEDS: MAGNESIUM HYDROXIDE SUSP 30 ML CUP PO PRN (12:13)
--- NOTE | 2017-06-06 12:46 | HHI.PYPN ---
Subjective Remarks Pt seen and discussed with staff. She is cooperative and compliant with care. she remains depressed and irritaable. She has been participating in therapeutic activities. No behavioral problems on unit. Mental Status Examination Appearance: Appropriate Consciousness: Alert Orientation: x4 Motor Activity: Other (patient uses walker will get PT consult) Speech: Unremarkable Language: Adequate Fund of Knowledge: Adequate Attention and Concentration: Adequate Memory: Unremarkable Mood: Sad Affect: Irritable, Other (slight decreased range and intensity) Thought Process & Associations: Intact Thought Content: Appropriate Hallucination Type: None Delusion Type: None Suicidal Ideation: No (denies) Suicidal Plan: No (denies) Suicidal Intention: No (denies) Homicidal Ideation: No Homicidal Plan: No Homicidal Intention: No Insight: Fair Judgment: Adequate Results Labs Test 06/06/17 11:11 Vitals/IOs Vital Signs Date Time Temp Pulse Resp B/P (MAP) Pulse Ox O2 Delivery O2 Flow Rate FiO2 06/06/17 05:00 97.8 84 16 124/67 (86) 96 Assessment & Plan Problem List: (1) Bipolar disorder, mixed ICD Codes: F31.60 - Bipolar disorder, current episode mixed, unspecified Status: Acute Assessment & Plan Continue current tx plan. Estimated LOS: days Justification for Cont. Inpt. risk of decompensation Request HC Surrog/Guard Advoc?: Nancy Casarez MD Jun 06, 2017 12:46
[2017-06-06 13:11] LABS: BICARBONATE 22.7 MEQ/L (21.0-32.0); CALCIUM 8.8 MG/DL (8.5-10.1)
[2017-06-06 18:11] VITALS: BP 130/63; PULSE 104; RESP 16; TEMP 97.9; O2SAT 99
[2017-06-06] MEDS: MIRTAZAPINE 15 MG TAB PO SCH ×2 (21:12→21:14)
[2017-06-06] MEDS: QUEtiapine FUMARATE 100 MG TAB PO SCH ×2 (21:12→21:14)
[2017-06-06] MEDS: diphenhydrAMINE HCL 50 MG CAP - HS PRN PO (21:14)
[2017-06-07 05:24] VITALS: BP 125/61; PULSE 92; RESP 16; TEMP 97.6; O2SAT 98
[2017-06-07] MEDS: LEVOTHYROXINE SODIUM 50 MCG TAB PO SCH (06:12)
[2017-06-07] MEDS: DOCUSATE SODIUM 50 MG/SENNA 8.6 MG TAB PO SCH (08:26)
[2017-06-07] MEDS: LISINOPRIL 5 MG TAB PO SCH (08:26)
[2017-06-07] MEDS: AQUAPHOR OINT 50 GM TUBE TOPICAL SCH ×2 (08:28→21:00)
[2017-06-07] MEDS: QUEtiapine FUMARATE 25 MG TAB PO SCH ×3 (08:34→17:02)
--- NOTE | 2017-06-07 15:38 | HHI.PYPN ---
Subjective Remarks Pt seen and discussed with staff. She remains depressed but reports anxiety is better. Memory is poor. She is compliant with medications. No agitation or aggression. No SI/HI Mental Status Examination Appearance: Appropriate Consciousness: Alert Orientation: x4 Motor Activity: Other (patient uses walker will get PT consult) Speech: Unremarkable Language: Adequate Fund of Knowledge: Adequate Attention and Concentration: Adequate Memory: Unremarkable Mood: Sad Affect: Irritable, Other (slight decreased range and intensity) Thought Process & Associations: Intact Thought Content: Appropriate Hallucination Type: None Delusion Type: None Suicidal Ideation: No (denies) Suicidal Plan: No (denies) Suicidal Intention: No (denies) Homicidal Ideation: No Homicidal Plan: No Homicidal Intention: No Insight: Fair Judgment: Impulsive Results Vitals/IOs Vital Signs Date Time Temp Pulse Resp B/P (MAP) Pulse Ox O2 Delivery O2 Flow Rate FiO2 06/07/17 05:24 97.6 92 16 125/61 (82) 98 Assessment & Plan Problem List: (1) Bipolar disorder, mixed ICD Codes: F31.60 - Bipolar disorder, current episode mixed, unspecified Status: Acute Assessment & Plan Continue current tx plan. Estimated LOS: days Justification for Cont. Inpt. risk of decompensation Request HC Surrog/Guard Advoc?: Nancy Casarez MD Jun 07, 2017 15:38
[2017-06-07 16:53] VITALS: BP 110/60; PULSE 95; RESP 18; TEMP 97.9; O2SAT 97
[2017-06-07] MEDS: MIRTAZAPINE 15 MG TAB PO SCH (21:32)
[2017-06-07] MEDS: QUEtiapine FUMARATE 100 MG TAB PO SCH (21:32)
[2017-06-07] MEDS: MAGNESIUM HYDROXIDE SUSP 30 ML CUP PO PRN (21:32)
[2017-06-07] MEDS: diphenhydrAMINE HCL 50 MG CAP - HS PRN PO (21:32)
[2017-06-08] MEDS: LEVOTHYROXINE SODIUM 50 MCG TAB PO SCH (06:00)
[2017-06-08] MEDS: DOCUSATE SODIUM 50 MG/SENNA 8.6 MG TAB PO SCH (08:34)
[2017-06-08] MEDS: LISINOPRIL 5 MG TAB PO SCH (08:34)
[2017-06-08] MEDS: QUEtiapine FUMARATE 25 MG TAB PO SCH ×3 (08:34→16:05)
[2017-06-08] MEDS: AQUAPHOR OINT 50 GM TUBE TOPICAL SCH ×2 (08:35→20:40)
[2017-06-08] MEDS: MAGNESIUM HYDROXIDE SUSP 30 ML CUP PO PRN (08:44)
--- NOTE | 2017-06-08 15:32 | HHI.PYPN ---
Subjective Remarks Patient seen in day room with floor staff, chart review, patient discussed with nurse. Patient states she still has some occasional dry mouth and anxiety towards bedtime, she feels that the Benadryl at at bedtime also help slow. She denies suicidality homicidality voices or visions. For now continue treatment Review of Systems Except as stated in HPI: all other systems reviewed are Neg Mental Status Examination Appearance: Appropriate Consciousness: Alert Orientation: x4 Motor Activity: Other (patient uses walker will get PT consult) Speech: Unremarkable Language: Adequate Fund of Knowledge: Adequate Attention and Concentration: Adequate Memory: Unremarkable Mood: Sad Affect: Irritable, Other (slight decreased range and intensity) Thought Process & Associations: Intact Thought Content: Appropriate Hallucination Type: None Delusion Type: None Suicidal Ideation: No (denies) Suicidal Plan: No (denies) Suicidal Intention: No (denies) Homicidal Ideation: No Homicidal Plan: No Homicidal Intention: No Insight: Fair Judgment: Impulsive Results Vitals/IOs Vital Signs Date Time Temp Pulse Resp B/P (MAP) Pulse Ox O2 Delivery O2 Flow Rate FiO2 06/07/17 16:53 97.9 95 18 110/60 (77) 97 Assessment & Plan Problem List: (1) Bipolar disorder, mixed ICD Codes: F31.60 - Bipolar disorder, current episode mixed, unspecified Status: Acute Assessment & Plan Estimated LOS: days patient remains somewhat depressed and now psychotic/ obsessing over her dry mouth and swallowing difficulties. For now continue treatment Justification for Cont. Inpt. At this time patient decompensated placed in a lower level of care Discharge Planning Return home Request HC Surrog/Guard Advoc?: No Akhil Fields MD Jun 08, 2017 15:32
[2017-06-08 18:09] VITALS: BP 137/63; PULSE 107; RESP 16; TEMP 97.6; O2SAT 96
[2017-06-08] MEDS: diphenhydrAMINE HCL 50 MG CAP - HS PRN PO (20:37)
[2017-06-08] MEDS: QUEtiapine FUMARATE 100 MG TAB PO SCH (20:38)
[2017-06-08] MEDS: MIRTAZAPINE 15 MG TAB PO SCH (20:38)
[2017-06-09 04:49] VITALS: BP 108/64; PULSE 94; RESP 16; TEMP 97.9; O2SAT 96
[2017-06-09] MEDS: LEVOTHYROXINE SODIUM 50 MCG TAB PO SCH (06:03)
[2017-06-09] MEDS: QUEtiapine FUMARATE 25 MG TAB PO SCH ×3 (08:11→17:18)
[2017-06-09] MEDS: DOCUSATE SODIUM 50 MG/SENNA 8.6 MG TAB PO SCH (08:11)
[2017-06-09] MEDS: LISINOPRIL 5 MG TAB PO SCH (08:11)
[2017-06-09] MEDS: AQUAPHOR OINT 50 GM TUBE TOPICAL SCH ×2 (08:13→21:00)
--- NOTE | 2017-06-09 09:23 | PD.TTN ---
Patient Problems 1. Discharge planning 2. Medication compliance 3. Knowledge deficit 4. Lack of coping skills Progress Toward Goals Provider Present: Dr. Lindsey Fields Provider Input: 06/08/17 - Dr. Fields reports the patient sleeps well when she is allowed to stay up until 10:00 p.m. She is appropriately responding to medication and will be discharged back to [facility] when stable. 06/03/17 - Dr. Fields reports that the patient making improvements. Patient informed Dr. Fields that she slept better last night because she went to bed at 10:30 p.m. Patient reports that she enjoys staying up later because it helps her sleep. 06/01/17 - Patient has not been any behavioral problem since admission. Psychiatric Counselors Present: RUDY Boss Psych Therapist Input: 06/08/17 - Counselor will contact Jeanette to update her on patient's progress. 06/03/17 - Patient will return to [facility] when stable. Counselor will speak to Mirela to report that the patient sleeps better when she is permitted to stay up until 10:30 p.m. 06/01/17 - Counselor will speak with the patient and her family regarding plan for discharge. Group Spec/RT/OT/RODRIGUEZ Present: JENNIFER Mcmillan Andrew Harrison, OT Group Spec/RT/OT/RODRIGUEZ Input: 06/08/17 - Decreased participation in groups. 06/03/17 - Patient attends select groups. 06/01/17 - Patient attends select groups. Discharge Plan SMA 06/03/17 - Patient will return to [facility] when stable. Documentation Scribe: RUDY Boss Date Resolved: Jun 08, 2017 Shahla Rockwell Jun 09, 2017 09:23
[2017-06-09] MEDS: MAGNESIUM HYDROXIDE SUSP 30 ML CUP PO PRN (11:47)
--- NOTE | 2017-06-09 14:42 | HHI.PYPN ---
Subjective Remarks Patient seen in her room before December chart review, patient discussed with nurse. Patient laying on her bed, stated she did not sleep very well last night. She denies suicidality voices or visions, but her difficulty with swallowing in the mild delusions related to that persist. Will increase at bedtime Seroquel to 150 mg Review of Systems Except as stated in HPI: all other systems reviewed are Neg Mental Status Examination Appearance: Appropriate Consciousness: Alert Orientation: x4 Motor Activity: Other (patient uses walker will get PT consult) Speech: Unremarkable Language: Adequate Fund of Knowledge: Adequate Attention and Concentration: Adequate Memory: Unremarkable Mood: Sad Affect: Irritable, Other (slight decreased range and intensity) Thought Process & Associations: Intact Thought Content: Appropriate Hallucination Type: None Delusion Type: None Suicidal Ideation: No (denies) Suicidal Plan: No (denies) Suicidal Intention: No (denies) Homicidal Ideation: No Homicidal Plan: No Homicidal Intention: No Insight: Fair Judgment: Impulsive Results Vitals/IOs Vital Signs Date Time Temp Pulse Resp B/P (MAP) Pulse Ox O2 Delivery O2 Flow Rate FiO2 06/09/17 04:49 97.9 94 16 108/64 (79) 96 Assessment & Plan Problem List: (1) Bipolar disorder, mixed ICD Codes: F31.60 - Bipolar disorder, current episode mixed, unspecified Status: Acute Assessment & Plan Estimated LOS: days patient continues somewhat psychotic difficulty swallowing of a dry mouth. Will increase at bedtime Seroquel to 150 mg Justification for Cont. Inpt. At this time patient with decompensated placed in a lower level of care Discharge Planning Return to senior living Request HC Surrog/Guard Advoc?: No Akhil Fields MD Jun 09, 2017 14:42
[2017-06-09 18:31] VITALS: BP 133/60; PULSE 100; RESP 16; TEMP 98.4; O2SAT 99
[2017-06-09] MEDS ORDERED: QUEtiapine FUMARATE 100 MG TAB PO SCH (21:00)
[2017-06-09] MEDS: MIRTAZAPINE 15 MG TAB PO SCH (21:03)
[2017-06-09] MEDS: diphenhydrAMINE HCL 50 MG CAP - HS PRN PO (21:03)
[2017-06-10] MEDS: LEVOTHYROXINE SODIUM 50 MCG TAB PO SCH (06:04)
[2017-06-10 06:18] VITALS: BP 158/72; PULSE 96; RESP 18; TEMP 98; O2SAT 97
[2017-06-10 06:20] VITALS: BP 158/72; PULSE 96; RESP 18; TEMP 98; O2SAT 97
[2017-06-10] MEDS: QUEtiapine FUMARATE 25 MG TAB PO SCH ×2 (08:00→11:56)
[2017-06-10] MEDS: DOCUSATE SODIUM 50 MG/SENNA 8.6 MG TAB PO SCH (08:36)
[2017-06-10] MEDS: AQUAPHOR OINT 50 GM TUBE TOPICAL SCH (08:36)
[2017-06-10] MEDS: LISINOPRIL 5 MG TAB PO SCH (08:36)
[2017-06-10] MEDS ORDERED: AMLO10 PO (11:47)
[2017-06-10] MEDS ORDERED: LISI-519 PO (11:47)
[2017-06-10] MEDS ORDERED: REME15TA PO (11:47)
[2017-06-10] MEDS ORDERED: DIPH25CA PO (11:47)
[2017-06-10] MEDS ORDERED: SERO25TA PO (11:47)
[2017-06-10] MEDS ORDERED: DIPH50CA PO (11:47)
[2017-06-10] MEDS ORDERED: SERO200T PO (11:47)
[2017-06-10] MEDS ORDERED: LEVO50TA4 PO (11:47)
--- NOTE | 2017-06-10 11:51 | HHI.DS ---
Psychiatry Discharge Summary Inpatient Psychiatric care?: Yes Advance Directive: No Reason Not Provided: decline Mental Health AdvanceDirective: No Health Care Proxy: No Admission Admission Date May 27, 2017 at 22:09 Admission Diagnosis: (1) Bipolar disorder, mixed ICD Code: F31.60 - Bipolar disorder, current episode mixed, unspecified Brief History Patient is a 76-year-old white female comes here voluntarily from her small alf, [place] home, patient exhibited some out of control irritable manic labile behaviors. Making vague suicidal statements. Patient is a long history of bipolar disorder. Effect upon review of the EMR patient is hospitalized briefly under my service in 2012 for similar episode. Patient seen screened in our ED Depakote blood level returned as 118. In toxicology negative alcohol level negative. At the present time patient sitting quietly in her room medical student Jose present throughout session. Patient is alert oriented white female who appears stated age she is calm and cooperative with us. She states she is lived in her alf for number of years is actually happy with her. She states she tries to be compliant with medication. She does complain primarily of dry mouth it appears this occurs throughout the day but it is more significant towards late evening and into the morning hours. Depression is seeing her dentist no help. She has tried frequent use of about beverages. She has tried hard candy. All with no significant side effects. Patient does denies suicidality homicidality voices or visions. It appears she is getting his psychotropic medications for her family practice doctor. She does denies suicidality homicidality voices or visions. Patient lives in the alf but has close relationship with her daughter who lives locally. At this time patient meets criteria for further assessment voluntarily an inpatient psychiatric hospitalization. Will recheck Depakote blood level in a.m. we will increase her scheduled Seroquel to 50 mg a.m. 50 mg at bedtime. We 'll continue the Remeron at 7.5 mg daily we will discontinue the trazodone. will have hospitalist consult hopefully this will be a short stay with us, returning to her alf with follow-up through that facility patient also states that she has had 4 children 3 or 4 in the living daughter who is local, that she is also buried 3 husbands Tobacco Use In Past 30 Days: No Tobacco Past 30 Days Alcohol Use: Never Hospital Course Patient's hospital course was uneventful, she show compliance of the medication , has been no behavioral problems. Her complaints of dry mouth and some difficulty with breathing causing increased anxiety diminished. Her sleep improved. She show compliance of the medication. There continues a bed available for her at her alf. At this time I feel patient has reached maximum benefit of this hospitalization thus patient to be discharged today back to her group all with Rx 1 month follow-up mental health services through that facility or through [facility] Results Blood Pressure 158 / 72 Vital Signs Date Time Temp Pulse Resp B/P (MAP) Pulse Ox O2 Delivery O2 Flow Rate FiO2 06/10/17 06:20 98.0 96 18 158/72 (100) 97 Laboratory Results Test 05/28/17 14:19 05/29/17 14:29 Cholesterol Level 195 MG/DL (120-200) HDL Cholesterol 91.6 MG/DL (40.0-60.0) Hemoglobin A1c 4.9 % (4.3-6.0) LDL Cholesterol 90 MG/DL (0-99) Triglycerides Level 68 MG/DL (42-150) Valproic Acid (Depakene) Level 10 MCG/ML (50-100) Summary of Procedures None done Pending results at discharge: No Medications # of Antipsychotic meds at D/C: 1 Approp Antipsych med options 1 - Minimum of three failed multiple trials of monotherapy. 2 - Documented plan to taper to monotherapy due to previous use of multiple meds OR cross-taper in progress at D/C. 3 - Documentation of augmentation of Clozapine. 4 - Justification other than those listed in allowable values 1-3, document here : Discharge Discharge Date: Jun 10, 2017 Discharge Diagnosis: (1) Bipolar disorder, mixed Diagnosis: Principal ICD Code: F31.60 - Bipolar disorder, current episode mixed, unspecified Status: Acute Pt Condition on Discharge: Stable Discharge Disposition: [facility] Discharge Instructions Diet Instructions: As Tolerated, No Restrictions Activities you can perform: Regular-No Restrictions Scheduled Appointment: follow-up services through [facility]'s, or through [facility] Discharge Time > 30 minutes Mental Status Examination Appearance: Appropriate Consciousness: Alert Orientation: x4 Motor Activity: Other (patient uses walker will get PT consult) Speech: Unremarkable Language: Adequate Fund of Knowledge: Adequate Attention and Concentration: Adequate Memory: Unremarkable Mood: Sad Affect: Irritable, Other (slight decreased range and intensity) Thought Process & Associations: Intact Thought Content: Appropriate Hallucination Type: None Delusion Type: None Suicidal Ideation: No (denies) Suicidal Plan: No (denies) Suicidal Intention: No (denies) Homicidal Ideation: No Homicidal Plan: No Homicidal Intention: No Insight: Fair Judgment: Impulsive Discharge/Advance Care Plan Health Problems: (1) Bipolar disorder, mixed Goals to promote your health * To prevent worsening of your condition and complications * To maintain your health at the optimal level Directions to meet your goals Take your medications as prescribed Follow your dietary instruction Follow activity as directed Keep your appointments as scheduled Take your immunizations and boosters as scheduled If your symptoms worsen call your PCP, if no PCP go to Urgent Care Center or Emergency Room For 03/11 questions related to your inpatient stay or results of tests pending at discharge, please contact Dr. Akhil Fields at Smoking is Dangerous to Your Health. Avoid second hand smoking Akhil Fields MD Jun 10, 2017 11:51
== END 2017-06-10 14:10 | DRG 885 ==
LOC: NEPD 11:38 → NEDA 22:09 → H250 23:30 → H260 05-28 13:00
PROVIDERS: ADMIT Psychiatry & Neurology Psychiatry; ATTEND Psychiatry & Neurology Psychiatry
DX: F31.60 Bipolar disorder, current episode mixed, unspecified (principal); N17.9 Acute kidney failure, unspecified; J44.9 Chronic obstructive pulmonary disease, unspecified; E87.5 Hyperkalemia; M35.00 Sjogren syndrome, unspecified; I10 Essential (primary) hypertension; F41.1 Generalized anxiety disorder; K21.9 Gastro-esophageal reflux disease without esophagitis; M81.0 Age-related osteoporosis without current pathological fracture; M19.90 Unspecified osteoarthritis, unspecified site; Z85.118 Personal history of other malignant neoplasm of bronchus and lung; Z87.891 Personal history of nicotine dependence; G47.00 Insomnia, unspecified; Z23 Encounter for immunization
CPT/HCPCS: 80048; 80053; 80061; 80164; 80307; 81001; 82140; 83036; 84132; 84443; 85025; 90686; Q0163; Q2038